=== PATIENT | male | born 1950 | race African-American/Black ===

== ENCOUNTER 2017-06-10 16:17 | Inpatient (IN) | payer OTHER, MEDICAID, MEDICARE ==
[~2017-06-10] VITALS: Ht 182.9 cm; Wt 153.0 kg
[~2017-06-10 16:17] MED LIST: BACT800T5 PO; CLIN150 PO
[2017-06-10 16:21] VITALS: BP 163/77; PULSE 100; RESP 20; TEMP 98; O2SAT 96
[2017-06-10] MEDS ORDERED: HYDR-3580 PO (17:21)
[2017-06-10] MEDS ORDERED: CEPH-460 PO (17:21)
[2017-06-10] MEDS ORDERED: PIPERACIL-TAZO 3.375 GM PREMIX 50 ML IV ONE (17:45)
[2017-06-10] MEDS ORDERED: VANCOMYCIN INJ 1,000 MG in SODIUM CHLOR 0.9% 250 ML INJ 250 ML IV ONE (17:45)
[2017-06-10 18:28] VITALS: BP 147/115; O2SAT 97
[2017-06-10 18:43] LABS: AUTOMATED NEUTROPHIL # 7.4 TH/MM3 (1.8-7.7); BASOPHIL % 0.5 % (0.0-2.0); EOSINOPHIL # 0.1 TH/MM3 (0-0.4); EOSINOPHIL % 1.5 % (0.0-4.0); HEMATOCRIT 35.4 % (39.0-51.0); HEMOGLOBIN 11.9 GM/DL (13.0-17.0); LYMPH % 10.4 % (9.0-44.0); MEAN CELL VOLUME 86.3 FL (80.0-100.0); MEAN CORPUSCULAR HEMOGLOBIN 29.1 PG (27.0-34.0); MEAN CORPUSCULAR HGB CONC 33.7 % (32.0-36.0); MEAN PLATELET VOLUME 6.8 FL (7.0-11.0); MONO % 9.2 % (0.0-8.0); MONOCYTE # 0.9 TH/MM3 (0-0.9); NEUT % 78.4 % (16.0-70.0); PLATELET COUNT 296 TH/MM3 (150-450); RED CELL DISTRIBUTION WIDTH 14.6 % (11.6-17.2); WHITE BLOOD COUNT 9.4 TH/MM3 (4.0-11.0)
--- NOTE | 2017-06-10 18:43 | PD ---
HPI Chief Complaint: Skin Problem Time Seen by Provider: 18:37 Travel History International Travel<30 days: No Contact w/Intl Traveler<30days: No Traveled to known affect area: No History of Present Illness HPI 66-year-old male that presents to the ED for evaluation of lower leg edema and possible infection. Patient has a chronic history of lymphedema. Patient has chronic lower leg swelling. Per patient for the past 5 days he has been noticing discoloration of the lower legs as well as wounds. Is foul-smelling. Patient went to see his doctor Dr. Vasquez today who sent him here for evaluation and likely admission. Patient shows me the prescription from the doctor stating to patient was referred to here by the doctor and there is a note that he wants me to talk to him. Per patient he was seen at [facility] about a week or 2 ago for evaluation of something similar and he was started on Keflex. Per patient she did not fill the prescription. He is also homeless and states that he will like consistent with placement secondary to the cold. He denies any chest pain or shortness of breath. Per patient she's been doing wound care himself daily. He denies any history of diabetes. He denies taking any medications. No chest pain or shortness of breath. Allergy to lidocaine. Per patient he currently has no pain. PFSH Past Medical History Blood Disorders: No Cancer: No Cardiovascular Problems: No Diminished Hearing: No Endocrine: No Genitourinary: No Immune Disorder: No Musculoskeletal: Yes (WEAKNESS/LYMPHEDEMA/ELEPHANTITIS) Neurologic: No Psychiatric: No Reproductive: No Respiratory: No Immunizations Current: No Past Surgical History Oral Surgery: Yes (TONSILLECTOMY) Tonsillectomy: Yes Other Surgery: Yes Social History Alcohol Use: No (PT DENIES) Tobacco Use: No Substance Use: No Allergies-Medications (Allergen,Severity, Reaction): Coded Allergies: lidocaine (Unverified Allergy, Mild, 06/10/17) DENTIST TOLD HIM BUT HE DOESNT BELIEVE IT Reported Meds & Prescriptions Reported Meds & Active Scripts Active Reported Hydrocodone-Acetaminophen 7.5 Mg-325 Mg Tab 1 Tab PO Q4H PRN Keflex (Cephalexin) 500 Mg Cap 500 Mg PO Q12H Review of Systems Except as stated in HPI: all other systems reviewed are Neg Physical Exam Narrative GENERAL: SKIN: Warm and dry. See below HEAD: Atraumatic. Normocephalic. EYES: Pupils equal and round. No scleral icterus. No injection or drainage. ENT: No nasal bleeding or discharge. Mucous membranes pink and moist. Tongue is midline. No uvula deviation. NECK: Trachea midline. No JVD. CARDIOVASCULAR: Regular rate and rhythm. RESPIRATORY: No accessory muscle use. Clear to auscultation. Breath sounds equal bilaterally. GASTROINTESTINAL: Abdomen soft, non-tender, nondistended. Hepatic and splenic margins not palpable. MUSCULOSKELETAL: Extremities without clubbing, cyanosis, or edema. No obvious deformities. Full range of motion of the upper and lower extremities bilaterally. Patient has significant lymphedema to the lower legs bilaterally. Patient has bilateral wounds to the lower legs with foul-smelling discharge. Noticeable on both lower legs. More than 20 cm in diameter. Unclear chronicity. Hard to assess pulses secondary to patient's significant lymphedema. NEUROLOGICAL: Awake and alert. No obvious cranial nerve deficits. Motor grossly within normal limits. Five out of 5 muscle strength in the arms and legs. Normal speech. PSYCHIATRIC: Appropriate mood and affect; insight and judgment normal. Data Data Last Documented VS Vital Signs Date Time Temp Pulse Resp B/P (MAP) Pulse Ox O2 Delivery O2 Flow Rate FiO2 06/10/17 19:11 95 17 144/85 (104) 96 Room Air 06/10/17 16:21 98.0 Orders Orders Complete Blood Count With Diff (06/10/17 16:35) Comprehensive Metabolic Panel (06/10/17 16:35) Prothrombin Time / Inr (Pt) (06/10/17 16:35) Act Partial Throm Time (Ptt) (06/10/17 16:35) Westergren Sedimentation Rate (06/10/17 16:35) C-Reactive Protein (Crp) (06/10/17 16:35) Blood Culture (06/10/17 17:38) Wound Culture And Gram Stain (06/10/17 17:38) Vancomycin Inj (Vancomycin Inj) (06/10/17 17:45) Piperacil-Tazo 3.375 Gm Premix (Zosyn 3. (06/10/17 17:45) Wound Care (06/10/17 18:36) Admit Order (Ed Use Only) (06/10/17 19:18) Labs Laboratory Tests Test 06/10/17 18:01 White Blood Count 9.4 TH/MM3 Red Blood Count 4.10 MIL/MM3 Hemoglobin 11.9 GM/DL Hematocrit 35.4 % Mean Corpuscular Volume 86.3 FL Mean Corpuscular Hemoglobin 29.1 PG Mean Corpuscular Hemoglobin Concent 33.7 % Red Cell Distribution Width 14.6 % Platelet Count 296 TH/MM3 Mean Platelet Volume 6.8 FL Neutrophils (%) (Auto) 78.4 % Lymphocytes (%) (Auto) 10.4 % Monocytes (%) (Auto) 9.2 % Eosinophils (%) (Auto) 1.5 % Basophils (%) (Auto) 0.5 % Neutrophils # (Auto) 7.4 TH/MM3 Lymphocytes # (Auto) 1.0 TH/MM3 Monocytes # (Auto) 0.9 TH/MM3 Eosinophils # (Auto) 0.1 TH/MM3 Basophils # (Auto) 0.0 TH/MM3 CBC Comment DIFF FINAL Differential Comment Erythrocyte Sedimentation Rate 59 mm/hr Prothrombin Time 10.7 SEC Prothromb Time International Ratio 1.1 RATIO Activated Partial Thromboplast Time 26.4 SEC Blood Urea Nitrogen 10 MG/DL Creatinine 0.86 MG/DL Random Glucose 90 MG/DL Total Protein 8.4 GM/DL Albumin 2.9 GM/DL Calcium Level 8.6 MG/DL Alkaline Phosphatase 68 U/L Aspartate Amino Transf (AST/SGOT) 16 U/L Alanine Aminotransferase (ALT/SGPT) 12 U/L Total Bilirubin 0.9 MG/DL Sodium Level 137 MEQ/L Potassium Level 3.6 MEQ/L Chloride Level 102 MEQ/L Carbon Dioxide Level 27.5 MEQ/L Anion Gap 8 MEQ/L Estimat Glomerular Filtration Rate 108 ML/MIN C-Reactive Protein 4.20 MG/DL [facility] Medical Decision Making Medical Screen Exam Complete: Yes Emergency Medical Condition: Yes Medical Record Reviewed: Yes Interpretation(s) CBC & BMP Diagram 06/10/17 18:01 Total Protein 8.4 H, Albumin 2.9 L, Calcium Level 8.6, Alkaline Phosphatase 68, Aspartate Amino Transf (AST/SGOT) 16, Alanine Aminotransferase (ALT/SGPT) 12, Total Bilirubin 0.9 CRP and ERS elevated Differential Diagnosis Lymphedema versus one infection versus chronic wound infection versus cellulitis Narrative Course 66-year-old male that presents to the ED for evaluation of lower leg edema and possible infection. Patient was properly examined and was found to have signs and symptoms consistent with infection. I spoke with Dr. Vasquez over the phone who is aware of the patient as is the patient's PCP recommended the patient be admitted. Per Dr. Vasquez he wants the patient to be admitted to help us as he does not admit non [employer] patients. Labs were ordered. Do not see any need for imaging at this time as patient has had no falls or I do not see any sign of osteomyelitis. This appears to be acute chronic wound that is infected. Does smell foul. Labs were ordered. Pressures on IV antibiotics. Case will be discussed with JOESPH Linda who agrees to obs admission. Diagnosis Primary Impression: Lower extremity cellulitis Qualified Codes: L03.119 - Cellulitis of unspecified part of limb Additional Impression: Lymphedema Admitting Information Admitting Physician Requests: Tigre Carcamo Jun 10, 2017 18:43
[2017-06-10 18:53] LABS: INTERNATIONAL NORMALIZED RATIO 1.1 RATIO; PROTHROMBIN TIME - PATIENT 10.7 SEC (9.8-11.6)
[2017-06-10 18:55] LABS: ALBUMIN 2.9 GM/DL (3.4-5.0); AST (GOT) 16 U/L (15-37); BICARBONATE 27.5 MEQ/L (21.0-32.0); BLOOD UREA NITROGEN 10 MG/DL (7-18); CALCIUM 8.6 MG/DL (8.5-10.1); CHLORIDE 102 MEQ/L (98-107); CREATININE 0.86 MG/DL (0.60-1.30); GLOMERULAR FILTRATION RATE 108 ML/MIN (>89); GLUCOSE,RANDOM 90 MG/DL (74-106); SODIUM (NA) 137 MEQ/L (136-145)
[2017-06-10 18:57] LABS: ALT (GPT) 12 U/L (12-78)
[2017-06-10 18:59] LABS: ALKALINE PHOSPHATASE 68 U/L (45-117); TOTAL BILIRUBIN ADULT 0.9 MG/DL (0.2-1.0); TOTAL PROTEIN 8.4 GM/DL (6.4-8.2)
[2017-06-10 19:11] VITALS: BP 144/85; PULSE 95; RESP 17; O2SAT 96
--- NOTE | 2017-06-10 19:37 | HHI.HP ---
[facility] Unknown Admission Diagnosis lower leg lymphedema with infected wounds and cellulitis Diagnoses: (1) Lower extremity cellulitis Diagnosis: Principal (2) Lymphedema Diagnosis: Principal (3) HTN (hypertension) Diagnosis: Principal Travel History International Travel<30 Days: No Contact w/Intl Traveler <30 Da: No Traveled to Known Affected Are: No History of Present Illness This is a 66-year-old Homeless male w/ a PMH of Lymphedema who was referred to the ER by PCP, Dr. Vasquez, for evaluation and admission secondary to bilateral lower extremity lymphedema and cellulitis. Per patient, he's had worsening swelling of bilateral lower extremities for approx 1wk. Notes associated foul- smelling odor and drainage from lower extremity wounds. Moderate severity. Seen at 2wks ago for similar symptoms and was given Rx for Keflex and Lortab , states he filled Lortab but not Keflex prescription. Seen by PCP today and referred to ER. Denies fever or chills. No alleviating or exacerbating factors. On arrival, BP 163/77, HR 100, O2 sat 96% on RA, Afebrile. CBC essentially at baseline. Chemistry unremarkable. INR 1.1. S/p Blood/Wound Cultures, Vanc/Zosyn in ER. Review of Systems Except as stated in HPI: all other systems reviewed are Neg ROS: 14 point review of systems otherwise negative. Past Family Social History Past Medical History PMH: Lymphedema Past Surgical History PAST SURGICAL HISTORY: Tonsillectomy Allergies: Coded Allergies: lidocaine (Unverified Allergy, Mild, 06/10/17) DENTIST TOLD HIM BUT HE DOESNT BELIEVE IT Family History PAST FAMILY HISTORY: Reviewed. No h/o DM or CAD Social History PAST SOCIAL HISTORY: Negative for alcohol, tobacco or drugs. Physical Exam Vital Signs Vital Signs Date Time Temp Pulse Resp B/P (MAP) Pulse Ox O2 Delivery O2 Flow Rate FiO2 06/10/17 19:11 95 17 144/85 (104) 96 Room Air 06/10/17 18:28 99 15 147/115 (126) 97 Room Air 06/10/17 18:13 16 06/10/17 16:21 98.0 100 20 163/77 (105) 96 Room Air Physical Exam PE: GENERAL: Middle-aged black male in no acute distress. Intense foul smelling odor upon walking into room. HEENT: PERRLA, EOMI. No scleral icterus or conjunctival pallor. No lid lag or facial droop. CARDIOVASCULAR: Regular rate and rhythm. No obvious murmurs to auscultation. No chest tenderness to palpation. RESPIRATORY: No obvious rhonchi or wheezing. Clear to auscultation. Breath sounds equal bilaterally. GASTROINTESTINAL: Abdomen soft, non-tender, nondistended. BS normal. MUSCULOSKELETAL: Extremities without clubbing, cyanosis, or edema. No obvious deformities. Significant lower extremity lymphedema bilaterally, open wounds w/ purulent drainage. NEUROLOGICAL: Awake, alert and oriented x4. No focal neurologic deficits. Moving both upper and lower extremities spontaneously. Laboratory Laboratory Tests Test 06/10/17 18:01 White Blood Count 9.4 Red Blood Count 4.10 Hemoglobin 11.9 Hematocrit 35.4 Mean Corpuscular Volume 86.3 Mean Corpuscular Hemoglobin 29.1 Mean Corpuscular Hemoglobin Concent 33.7 Red Cell Distribution Width 14.6 Platelet Count 296 Mean Platelet Volume 6.8 Neutrophils (%) (Auto) 78.4 Lymphocytes (%) (Auto) 10.4 Monocytes (%) (Auto) 9.2 Eosinophils (%) (Auto) 1.5 Basophils (%) (Auto) 0.5 Neutrophils # (Auto) 7.4 Lymphocytes # (Auto) 1.0 Monocytes # (Auto) 0.9 Eosinophils # (Auto) 0.1 Basophils # (Auto) 0.0 CBC Comment DIFF FINAL Differential Comment Erythrocyte Sedimentation Rate 59 Prothrombin Time 10.7 Prothromb Time International Ratio 1.1 Activated Partial Thromboplast Time 26.4 Blood Urea Nitrogen 10 Creatinine 0.86 Random Glucose 90 Total Protein 8.4 Albumin 2.9 Calcium Level 8.6 Alkaline Phosphatase 68 Aspartate Amino Transf (AST/SGOT) 16 Alanine Aminotransferase (ALT/SGPT) 12 Total Bilirubin 0.9 Sodium Level 137 Potassium Level 3.6 Chloride Level 102 Carbon Dioxide Level 27.5 Anion Gap 8 Estimat Glomerular Filtration Rate 108 C-Reactive Protein 4.20 Date/Time Source Procedure Growth Status 06/10/17 18:05 Blood Peripheral Aerobic Blood Culture Pending Received 06/10/17 18:05 Blood Peripheral Anaerobic Blood Culture Pending Received 06/10/17 18:01 Wound Leg Gram Stain Pending Received 06/10/17 18:01 Wound Leg Wound Culture Pending Received Result Diagram: 06/10/17 1801 06/10/17 180 Rodneyrini VTE Risk Assessment Caprini VTE Risk Assessment: Mod/High Risk (score >= 2) Caprini Risk Assessment Model Point Value = 1 Point Value = 2 Point Value = 3 Point Value = 5 Age 41-60 Minor surgery BMI > 25 kg/m2 Swollen legs Varicose veins or History of unexplained or recurrent spontaneous Oral contraceptives or hormone replacement Sepsis (< 1 month) Serious lung disease, including pneumonia (< 1 month) Abnormal pulmonary function Acute myocardial infarction Congestive heart failure (< 1 month) History of inflammatory bowel disease Medical patient at bed rest Age 61-74 Arthroscopic surgery Major open surgery (> 45 min) Laparoscopic surgery (> 45 min) Malignancy Confined to bed (> 72 hours) Immobilizing plaster cast Central venous access Age >= 75 History of VTE Family history of VTE Factor V Leiden Prothrombin [id number] Lupus anticoagulant Anticardiolipin antibodies Elevated serum homocysteine Heparin-induced thrombocytopenia Other congenital or acquired thrombophilia Stroke (< 1 month) Elective arthroplasty Hip, pelvis, or leg fracture Acute spinal cord injury (< 1 month) Prophylaxis Regimen Total Risk Factor Score Risk Level Prophylaxis Regimen 0-1 Low Early ambulation 2 Moderate Order ONE of the following: *Sequential Compression Device (SCD) *Heparin 5000 units SQ BID 3-4 Higher Order ONE of the following medications: *Heparin 5000 units SQ TID *Enoxaparin/Lovenox 40 mg SQ daily (WT < 150 kg, CrCl > 30 mL/min) *Enoxaparin/Lovenox 30 mg SQ daily (WT < 150 kg, CrCl > 10-29 mL/min) *Enoxaparin/Lovenox 30 mg SQ BID (WT < 150 kg, CrCl > 30 mL/min) AND/OR *Sequential Compression Device (SCD) 5 or more Highest Order ONE of the following medications: *Heparin 5000 units SQ TID (Preferred with Epidurals) *Enoxaparin/Lovenox 40 mg SQ daily (WT < 150 kg, CrCl > 30 mL/min) *Enoxaparin/Lovenox 30 mg SQ daily (WT < 150 kg, CrCl > 10-29 mL/min) *Enoxaparin/Lovenox 30 mg SQ BID (WT < 150 kg, CrCl > 30 mL/min) AND *Sequential Compression Device (SCD) Assessment and Plan Problem List: (1) Lower extremity cellulitis ICD Code: L03.119 - Cellulitis of unspecified part of limb (2) Lymphedema ICD Code: I89.0 - Lymphedema, not elsewhere classified (3) HTN (hypertension) ICD Code: I10 - Essential (primary) hypertension Assessment and Plan A/P: 1. Lower Extremity Cellulitis: Bilateral. c/o worsening bilateral lower extremity edema w/ foul-smelling drainage. Follow up Blood/Urine Cultures. S/ p Vanc/Zosyn in ER, continue w/ broad spectrum antibiotics for now. Consult Wound Management for assistance w/ wound care. 2. Lymphedema: Acute on Chronic. Worsening bilateral lower extremity edema as above. Continue w/ treatment of underlying cellulitis, pneumatic compression once infection clears. 3. HTN: Uncontrolled. BP 160's. Start Metoprolol 25mg bid 4. DVT Prophylaxis: Lovenox 5. Social work for d/c planning as needed. 6. Previous records/labs reviewed by me, case discussed w/ ER physician, plan of care discussed w/ DOCUMENT SCANNER. Physician Certification 2 Midnight Certification Type: Admission for Inpatient Services Order for Inpatient Services The services are ordered in accordance with Medicare regulations or non- Medicare payer requirements, as applicable. In the case of services not specified as inpatient-only, they are appropriately provided as inpatient services in accordance with the 2-midnight benchmark. Estimated LOS (days): 2 days is the estimated time the patient will need to remain in the hospital, assuming treatment plan goals are met and no additional complications. Post-Hospital Plan: Not yet determined Sole Linda MD Jun 10, 2017 19:37
[2017-06-10] MEDS ORDERED: ONDANSETRON HCL 4 MG/2 ML VIAL IVP PRN (19:45)
[2017-06-10] MEDS ORDERED: ACETAMINOPHEN 325 MG TAB PO PRN (19:45)
[2017-06-10] MEDS ORDERED: BISACODYL 10 MG SUPP RECTAL PRN (19:45)
[2017-06-10] MEDS ORDERED: Vancomycin Consult Pharmacy 1 EA OTHER SCH (19:45)
[2017-06-10] MEDS ORDERED: SENNOSIDES 8.6 MG TAB PO PRN (19:45)
[2017-06-10] MEDS ORDERED: ACETAMINOPHEN/HYDROcodone 325 MG/5 MG TAB PO PRN (19:45)
[2017-06-10] MEDS ORDERED: SODIUM CHLORIDE 0.9% FLUSH 10 ML FLUSH IV FLUSH PRN (19:45)
[2017-06-10] MEDS ORDERED: ACETAMINOPHEN/HYDROcodone 325 MG/10 MG TAB PO PRN (19:45)
[2017-06-10] MEDS ORDERED: LACTULOSE SYRUP 20 GM/30 ML CUP PO PRN (19:45)
[2017-06-10] MEDS ORDERED: MAGNESIUM HYDROXIDE SUSP 30 ML CUP PO PRN (19:45)
[2017-06-10] MEDS ORDERED: VANCOMYCIN 1,500 MG/NS 500 ML IV ONE ×2 (20:00)
[2017-06-10] MEDS: SODIUM CHLORIDE 0.9% FLUSH 10 ML FLUSH IV FLUSH SCH (21:00)
[2017-06-10] MEDS: METOPROLOL TARTRATE 25 MG TAB PO SCH (21:00)
[2017-06-10] MEDS: DOCUSATE SODIUM 50 MG/SENNA 8.6 MG TAB PO SCH (21:00)
[2017-06-10] MEDS: ENOXAPARIN SODIUM 40 MG/0.4 ML SYRINGE SQ SCH (21:00)
[2017-06-10 22:41] VITALS: BP 136/64; PULSE 106; RESP 20; TEMP 98.9; O2SAT 97
[2017-06-11] VITALS: BP 132/60; PULSE 106; RESP 20; TEMP 98.3; O2SAT 96
[2017-06-11 08:00] VITALS: BP 133/60; PULSE 93; RESP 22; TEMP 99.7; O2SAT 95
[2017-06-11] MEDS: DOCUSATE SODIUM 50 MG/SENNA 8.6 MG TAB PO SCH ×3 (08:01→20:31)
[2017-06-11] MEDS: METOPROLOL TARTRATE 25 MG TAB PO SCH ×2 (08:01→20:31)
[2017-06-11] MEDS: SODIUM CHLORIDE 0.9% FLUSH 10 ML FLUSH IV FLUSH SCH ×2 (08:02→20:34)
[2017-06-11] MEDS: CEFEPIME INJ 1,000 MG in SODIUM CHLORIDE 0.9% INJ 100 ML IV SCH ×2 (08:02→20:29)
[2017-06-11] MEDS: VANCOMYCIN INJ 2,250 MG in SODIUM CHLORID 0.9% 500 ML INJ 500 ML IV SCH ×2 (10:26→23:38)
--- NOTE | 2017-06-11 11:47 | HHI.PR ---
Subjective Remarks Follow-up for lower extremity acute on chronic secondary to lymphedema/ cellulitis Patient has no complaints. He remains afebrile. Deny any pain. Objective Vitals Vital Signs Date Time Temp Pulse Resp B/P (MAP) Pulse Ox O2 Delivery O2 Flow Rate FiO2 06/11/17 08:00 99.7 93 22 133/60 (84) 95 06/11/17 00:00 98.3 106 20 132/60 (84) 96 06/10/17 22:41 98.9 106 20 136/64 (88) 97 06/10/17 20:54 06/10/17 19:11 95 17 144/85 (104) 96 Room Air 06/10/17 18:28 99 15 147/115 (126) 97 Room Air 06/10/17 18:13 16 06/10/17 16:21 98.0 100 20 163/77 (105) 96 Room Air I/O 06/10/17 06/10/17 06/10/17 06/11/17 06/11/17 06/11/17 07:00 15:00 23:00 07:00 15:00 23:00 Intake Total 50 ml 120 ml Balance 50 ml 120 ml Intake Oral 120 ml IV Total 50 ml Result Diagram: 06/10/17 18006/10/171800 Objective Remarks GENERAL: Middle-aged black male in no acute distress very bad odor CARDIOVASCULAR: Regular rate and rhythm. No obvious murmurs to auscultation. No chest tenderness to palpation. RESPIRATORY: No obvious rhonchi or wheezing. Clear to auscultation. Breath sounds equal bilaterally. GASTROINTESTINAL: Abdomen soft, non-tender, nondistended. BS normal. MUSCULOSKELETAL: Significant lower extremity lymphedema bilaterally, open /also ulcerating wounds w/ purulent drainage. Medications and IVs Current Medications Vancomycin HCl 1000 mg/Sodium Chloride 250 ml @ 250 mls/hr ONCE ONCE IV Last administered on 06/10/17 19:15; Start 06/10/17 at 17:45; Stop 06/10/17 at 18 :44; Status DC Piperacillin Sod/ Tazobactam Sod 50 ml @ 100 mls/hr ONCE ONCE IV Last administered on 06/10/17 18:28; Start 06/10/17 at 17:45; Stop 06/10/17 at 18 :14; Status DC Pharmacy Profile Note 0 ml @ 0 mls/hr UNSCH OTHER ; Start 06/10/17 at 19:45 Cefepime HCl 1000 mg/Sodium Chloride 100 ml @ 200 mls/hr Q12H IV Last administered on 06/11/17 08:02; Start 06/11/17 at 09:00 Sodium Chloride (NS Flush) 2 ml UNSCH PRN IV FLUSH FLUSH AFTER USING IV ACCESS ; Start 06/10/17 at 19:45 Sodium Chloride (NS Flush) 2 ml BID IV FLUSH Last administered on 06/11/17 08 :02; Start 06/10/17 at 21:00 Ondansetron HCl (Zofran Inj) 4 mg Q6H PRN IVP NAUSEA OR VOMITING; Start at 19:45 Enoxaparin Sodium (Lovenox Inj) 40 mg Q24H SQ ; Start 06/10/17 at 21:00 Acetaminophen (Tylenol) 650 mg Q6H PRN PO FEVER/PAIN SCALE 1 TO 2; Start 06/10 at 19:45 Acetaminophen/ Hydrocodone Bitart ([place] 5-325 Mg) 1 tab Q4H PRN PO PAIN SCALE 3 TO 5; Start 06/10/17 at 19:45 Acetaminophen/ Hydrocodone Bitart ([place] 10-325 Mg) 1 tab Q4H PRN PO PAIN SCALE 6 TO 10; Start 06/10/17 at 19:45 Senna/Docusate Sodium (Dagmar-Colace) 1 tab BID PO ; Start 06/10/17 at 21:00 Magnesium Hydroxide (Milk Of Magnesia Liq) 30 ml Q12H PRN PO Mild constipation ; Start 06/10/17 at 19:45 Sennosides (Senokot) 17.2 mg Q12H PRN PO Moderate constipation; Start at 19:45 Bisacodyl (Dulcolax Supp) 10 mg DAILY PRN RECTAL SEVERE CONSITIPATION; Start 06/10/17 at 19:45 Lactulose (Lactulose Liq) 30 ml DAILY PRN PO SEVERE CONSITIPATION; Start 06/10 at 19:45 Vancomycin HCl 1500 mg/Sodium Chloride 515 ml @ 257.5 mls/ hr ONCE ONCE IV Last administered on 06/10/17 20:22; Start 06/10/17 at 20:00; Stop 06/10/17 at 21:59; Status DC Metoprolol Tartrate (Lopressor) 25 mg Q12HR PO Last administered on 06/11/17 08:01; Start 06/10/17 at 21:00 Vancomycin HCl 2250 mg/Sodium Chloride 522.5 ml @ 250 mls/hr Q12H IV Last administered on 06/11/17 10:26; Start 06/11/17 at 11:00 Miscellaneous Information SPECIFIC LAB TO BE ... ONCE ONCE .XX ; Start at 22:45; Stop 06/12/17 at 22:46 A/P Problem List: (1) Lower extremity cellulitis ICD Code: L03.119 - Cellulitis of unspecified part of limb (2) Lymphedema ICD Code: I89.0 - Lymphedema, not elsewhere classified (3) HTN (hypertension) ICD Code: I10 - Essential (primary) hypertension Assessment and Plan This is a 66-year-old male with chronic wound/lymphedema who presented with increased edema and foul-smelling drainage Lower Extremity Cellulitis: Bilateral. c/o worsening bilateral lower extremity edema w/ foul-smelling drainage. S/p Vanc/Zosyn in ER, -Currently on vancomycin and cefepime. Continue current regimen. Will consult infectious disease. -Pending wound care consult. Lymphedema -Wound care consulted. -Recommend elevating legs. Follow-up as outpatient. HTN: Uncontrolled. -Metoprolol started. Continue to monitor and adjust accordingly. DVT Prophylaxis: Gaby Echevarria MD Jun 11, 2017 11:47
[2017-06-11 12:00] VITALS: BP 115/57; PULSE 79; RESP 20; TEMP 98; O2SAT 96
[2017-06-11 13:00] LABS: AUTOMATED NEUTROPHIL # 5.2 TH/MM3 (1.8-7.7); BASOPHIL % 0.5 % (0.0-2.0); EOSINOPHIL # 0.3 TH/MM3 (0-0.4); EOSINOPHIL % 3.5 % (0.0-4.0); HEMATOCRIT 29.7 % (39.0-51.0); HEMOGLOBIN 10.1 GM/DL (13.0-17.0); LYMPH % 13.5 % (9.0-44.0); MEAN CELL VOLUME 86.9 FL (80.0-100.0); MEAN CORPUSCULAR HEMOGLOBIN 29.5 PG (27.0-34.0); MEAN CORPUSCULAR HGB CONC 33.9 % (32.0-36.0); MEAN PLATELET VOLUME 6.9 FL (7.0-11.0); MONO % 10.4 % (0.0-8.0); MONOCYTE # 0.7 TH/MM3 (0-0.9); NEUT % 72.1 % (16.0-70.0); PLATELET COUNT 260 TH/MM3 (150-450); RED BLOOD COUNT 3.42 MIL/MM3 (4.50-5.90); RED CELL DISTRIBUTION WIDTH 14.6 % (11.6-17.2); WHITE BLOOD COUNT 7.2 TH/MM3 (4.0-11.0)
[2017-06-11] MEDS: CHLORHEXIDINE GLUCONATE 4% SOLN 120 ML BTL TOPICAL SCH (13:00)
[2017-06-11 13:18] LABS: ALKALINE PHOSPHATASE 60 U/L (45-117); ALT (GPT) 12 U/L (12-78); AST (GOT) 40 U/L (15-37); BICARBONATE 26.8 MEQ/L (21.0-32.0); BLOOD UREA NITROGEN 11 MG/DL (7-18); CALCIUM 8.1 MG/DL (8.5-10.1); CHLORIDE 109 MEQ/L (98-107); CREATININE 0.73 MG/DL (0.60-1.30); GLOMERULAR FILTRATION RATE 131 ML/MIN (>89); GLUCOSE,RANDOM 108 MG/DL (74-106); SODIUM (NA) 138 MEQ/L (136-145); TOTAL BILIRUBIN ADULT 0.6 MG/DL (0.2-1.0); TOTAL PROTEIN 6.6 GM/DL (6.4-8.2)
[2017-06-11 16:00] VITALS: BP 132/62; PULSE 88; RESP 21; TEMP 98.5; O2SAT 95
[2017-06-11 20:00] VITALS: BP 119/56; PULSE 112; RESP 20; TEMP 98.5; O2SAT 96
[2017-06-11] MEDS: ENOXAPARIN SODIUM 40 MG/0.4 ML SYRINGE SQ SCH (20:34)
[2017-06-12] VITALS: BP 122/60; PULSE 88; RESP 18; TEMP 99.7; O2SAT 95
--- NOTE | 2017-06-12 06:52 | HHI.PR ---
Subjective Remarks This is a follow-up regarding cellulitis. Patient seen and examined this morning. Vital stable afebrile. Foul smelling. He has no complaints, wants to know what the plan for today is. Has been seen by ID. He denies CP or difficulty breathing. Objective Vital Signs Date Time Temp Pulse Resp B/P (MAP) Pulse Ox O2 Delivery O2 Flow Rate FiO2 06/12/17 00:00 99.7 88 18 122/60 (80) 95 06/11/17 20:00 98.5 112 20 119/56 (77) 96 06/11/17 16:00 98.5 88 21 132/62 (85) 95 06/11/17 12:00 98.0 79 20 115/57 (76) 96 06/11/17 08:00 99.7 93 22 133/60 (84) 95 I/O 06/11/17 06/11/17 06/11/17 06/12/17 06/12/17 06/12/17 07:00 15:00 23:00 07:00 15:00 23:00 Intake Total 120 ml 1300 ml 500 ml Output Total 1200 ml 950 ml Balance 120 ml 100 ml -450 ml Intake Oral 120 ml 1200 ml IV Total 100 ml 500 ml Output Urine Total 1200 ml 950 ml # Bowel Movements 0 Result Diagram: 06/11/17 1239 06/11/17 1239 Other Results GENERAL: malodors obese male, nad SKIN: Warm and dry. Chronic wounds bilat LE, heather bandages in place. HEAD: Normocephalic. EYES: No scleral icterus. No injection or drainage. NECK: Supple, trachea midline. No JVD or lymphadenopathy. CARDIOVASCULAR: Regular rate and rhythm without murmurs, gallops, or rubs. RESPIRATORY: Breath sounds equal bilaterally. No accessory muscle use. GASTROINTESTINAL: Abdomen soft, non-tender, nondistended. MUSCULOSKELETAL: Significant lymphedema, elephantitis A/P Problem List: (1) Lower extremity cellulitis ICD Code: L03.119 - Cellulitis of unspecified part of limb (2) Lymphedema ICD Code: I89.0 - Lymphedema, not elsewhere classified (3) HTN (hypertension) ICD Code: I10 - Essential (primary) hypertension Assessment and Plan 66-year-old male with history of chronic wounds/lymphedema, presented to the ER with increased edema and foul smelling discharge. Lower extremity cellulitis - Bilateral - Blood cultures negative today, wound cultures gram negative corbin - Infectious Disease consulted: switched to PO abx Clinda and Cipro, ordered a bath with chlorhexadine - Wound care consulted Chronic lymphedema - Recommend elevating the legs, he will have to continue to follow-up as an outpatient regarding this Hypertension - On metoprolol currently at goal Discharge Planning ID recommends SNF for wound care I discussed this case with Dr. Vanita Jerry,Kat Pool MD Jun 12, 2017 06:52
[2017-06-12] MEDS: CEFEPIME INJ 1,000 MG in SODIUM CHLORIDE 0.9% INJ 100 ML IV SCH (07:28)
[2017-06-12] MEDS: SODIUM CHLORIDE 0.9% FLUSH 10 ML FLUSH IV FLUSH SCH (07:31)
[2017-06-12] MEDS: METOPROLOL TARTRATE 25 MG TAB PO SCH (07:31)
[2017-06-12] MEDS: CHLORHEXIDINE GLUCONATE 4% SOLN 120 ML BTL TOPICAL SCH (07:36)
[2017-06-12] MEDS: DOCUSATE SODIUM 50 MG/SENNA 8.6 MG TAB PO SCH (07:36)
[2017-06-12 08:00] VITALS: BP 122/79; PULSE 68; RESP 17; TEMP 97.7; O2SAT 95
--- NOTE | 2017-06-12 08:23 | PD.CONS ---
History of Present Illness Service Infectious disease Consult Requested By Dr Belkis Mix Reason for Consult Evaluate patient with chronic lymphedema has chronic BLE wounds Primary Care Physician Unknown Diagnoses: History of Present Illness Patient seen and examined. Records reviewed. Patient is a 66-year-old male, he is also homeless, has had lymphedema in both lower extremities for many many years, has had problem with chronic nonhealing wounds in both legs, seen by his primary care physician on the day of admission and he recommended that he go to the hospital for further evaluation and treatment. Patient states that his ulcers would heal and then would open up. He can't remember how long the wounds have been open. He tries to keep the wounds clean. She denies any fever or chills or sweats. No respiratory, GI or any urinary complaints. He saw his primary care physician on the day of admission, and he was advised to go to the hospital. He apparently went to [facility] several weeks ago to have his wounds checked. He was given Lortab and Keflex, both for some reason he did not fill the prescription for Keflex. Highest temperature since admission has been 99+. His WBC is normal. There was a wound culture done that had makes gram-negative rods as well as gram -positive donato. Infectious disease consultation has been requested to evaluate the patient with chronic lower extremity wounds. Review of Systems Constitutional: DENIES: Fever, Chills Eyes: DENIES: Eye pain Ears, nose, mouth, throat: DENIES: Nasal discharge, Oral lesions, Throat pain, Ear Pain, Running Nose, Sinus Pain Respiratory: DENIES: Cough, Sputum production, Shortness of breath Cardiovascular: COMPLAINS OF: Lower Extremity Edema, DENIES: Chest pain, Palpitations Gastrointestinal: DENIES: Abdominal pain, Diarrhea, Nausea, Vomiting, Difficulty Swallowing Genitourinary: DENIES: Urgency, Dysuria Musculoskeletal: COMPLAINS OF: Joint Swelling Integumentary: COMPLAINS OF: Rash Neurologic: DENIES: Localized weakness Psychiatric: DENIES: Hallucinations Past Family Social History Allergies: Coded Allergies: lidocaine (Unverified Allergy, Mild, 06/10/17) DENTIST TOLD HIM BUT HE DOESNT BELIEVE IT Past Medical History Lymphedema Stasis ulcers BLE Past Surgical History Tonsillectomy Active Ordered Medications Current Medications Medications (Trade) Dose Ordered Sig/Haleigh Route Start Time Stop Time Status Last Admin Pharmacy Profile Note 0 ml @ 0 mls/hr UNSCH OTHER 06/10/17 19:45 Cefepime HCl 1000 mg/Sodium Chloride 100 ml @ 200 mls/hr Q12H IV 06/11/17 09:00 06/12/17 07:28 (NS Flush) 2 ml UNSCH PRN IV FLUSH 06/10/17 19:45 (NS Flush) 2 ml BID IV FLUSH 06/10/17 21:00 06/12/17 07:31 (Zofran Inj) 4 mg Q6H PRN IVP 06/10/17 19:45 (Lovenox Inj) 40 mg Q24H SQ 06/10/17 21:00 (Tylenol) 650 mg Q6H PRN PO 06/10/17 19:45 (Brethren 5-325 Mg) 1 tab Q4H PRN PO 06/10/17 19:45 (Brethren 10-325 Mg) 1 tab Q4H PRN PO 06/10/17 19:45 (Dagmar-Colace) 1 tab BID PO 06/10/17 21:00 (Milk Of Magnesia Liq) 30 ml Q12H PRN PO 06/10/17 19:45 (Senokot) 17.2 mg Q12H PRN PO 06/10/17 19:45 (Dulcolax Supp) 10 mg DAILY PRN RECTAL 06/10/17 19:45 (Lactulose Liq) 30 ml DAILY PRN PO 06/10/17 19:45 (Lopressor) 25 mg Q12HR PO 06/10/17 21:00 06/12/17 07:31 Vancomycin HCl 2250 mg/Sodium Chloride 522.5 ml @ 250 mls/hr Q12H IV 06/11/17 11:00 06/11/17 23:38 Miscellaneous Information SPECIFIC LAB TO BE TOY... ONCE ONCE .XX 06/12/17 22:45 06/12/17 22:46 (Hibiclens 4% Top Soln) 1 applic DAILY TOPICAL 06/11/17 13:00 06/14/17 20:00 06/12/17 07:36 Family History Non-contributory Social History Homeless Denies smoking Denies ETOH abuse Denies illicit drugs Physical Exam Vital Signs Vital Signs Date Time Temp Pulse Resp B/P (MAP) Pulse Ox O2 Delivery O2 Flow Rate FiO2 06/12/17 00:00 99.7 88 18 122/60 (80) 95 06/11/17 20:00 98.5 112 20 119/56 (77) 96 06/11/17 16:00 98.5 88 21 132/62 (85) 95 06/11/17 12:00 98.0 79 20 115/57 (76) 96 Physical Exam GENERAL: Patient is an obese, well-developed male, awake and alert, not in respiratory distress. SKIN: Cool and dry. No generalized rash, no ecchymoses and no evidence of embolic lesions. HEAD: Atraumatic. Normocephalic. No temporal wasting, or tenderness. EYES: Whitestone conjunctiva. No petechia or hemorrhage. Pupils equal, round and reactive to light. Extraocular movements full and intact. No scleral icterus. No injection or drainage. EARS, NOSE AND THROAT: Nose without bleeding or purulent nasal discharge. No sinus tenderness. Mucous membranes pink and moist. No oral lesions noted. No exudate. No oral thrush. NECK: Trachea midline. Supple and not tender, no meningeal signs CARDIOVASCULAR: Regular rate and rhythm. No murmurs, rubs or gallops heard RESPIRATORY: Clear to auscultation. Breath sounds equal bilaterally. No rales , wheezing or rhonchi ABDOMEN: Obese, non-tender, nondistended. Bowel sounds present and normoactive. No guarding. No rebound. Limited exam due to size. EXTREMITIES: Has chronic lymphedema with tree tree bark texture of whole LE from feet up to below knees, with multiple superficial ulcers biltaerally with some yellow green slough, and (+) odor, minimal redness seen in knee/thigh areas NEUROLOGICAL: Awake and alert. Cranial nerves grossly intact. Motor grossly within normal limits. PSYCHIATRIC: Normal affect, calm and cooperative. LINE: No evidence of infection Laboratory Laboratory Tests Test 06/11/17 12:39 White Blood Count 7.2 Red Blood Count 3.42 Hemoglobin 10.1 Hematocrit 29.7 Mean Corpuscular Volume 86.9 Mean Corpuscular Hemoglobin 29.5 Mean Corpuscular Hemoglobin Concent 33.9 Red Cell Distribution Width 14.6 Platelet Count 260 Mean Platelet Volume 6.9 Neutrophils (%) (Auto) 72.1 Lymphocytes (%) (Auto) 13.5 Monocytes (%) (Auto) 10.4 Eosinophils (%) (Auto) 3.5 Basophils (%) (Auto) 0.5 Neutrophils # (Auto) 5.2 Lymphocytes # (Auto) 1.0 Monocytes # (Auto) 0.7 Eosinophils # (Auto) 0.3 Basophils # (Auto) 0.0 CBC Comment DIFF FINAL Differential Comment Blood Urea Nitrogen 11 Creatinine 0.73 Random Glucose 108 Total Protein 6.6 Albumin 2.0 Calcium Level 8.1 Alkaline Phosphatase 60 Aspartate Amino Transf (AST/SGOT) 40 Alanine Aminotransferase (ALT/SGPT) 12 Total Bilirubin 0.6 Sodium Level 138 Potassium Level 5.9 Chloride Level 109 Carbon Dioxide Level 26.8 Anion Gap 2 Estimat Glomerular Filtration Rate 131 Date/Time Source Procedure Growth Status 06/10/17 18:05 Blood Peripheral Aerobic Blood Culture - Preliminary NO GROWTH IN 1 DAY Resulted 06/10/17 18:05 Blood Peripheral Anaerobic Blood Culture - Preliminary NO GROWTH IN 1 DAY Resulted 06/10/17 18:01 Wound Leg Gram Stain - Final Resulted 06/10/17 18:01 Wound Leg Wound Culture - Preliminary Resulted Result Diagram: 06/11/17 1239 06/11/17 1239 Assessment and Plan Assessment and Plan IMPRESSION Chronic MYLES LE lymphedema, with stasis ulcers - min to no cellulitis - local infection due to poor hygiene and wound care RECOMMENDATION Have patient take [id number] to clean whole body and use chlorhexidine wash Needs safe discharge, so he can get wound care and better care Clinda and Cipro x 7 days D/C IV Abx CM to assist with D/C Thank you for this consultation He can be D/C anytime from ID standpoint once arrangements made for his safe D/C Discussed Condition With D/W Samantha Fung MD Jun 12, 2017 08:23
[2017-06-12 08:25] LABS: HEMATOCRIT 32.8 % (39.0-51.0); HEMOGLOBIN 10.7 GM/DL (13.0-17.0); MEAN CELL VOLUME 87.5 FL (80.0-100.0); MEAN CORPUSCULAR HEMOGLOBIN 28.6 PG (27.0-34.0); MEAN CORPUSCULAR HGB CONC 32.7 % (32.0-36.0); MEAN PLATELET VOLUME 6.7 FL (7.0-11.0); PLATELET COUNT 272 TH/MM3 (150-450); RED BLOOD COUNT 3.74 MIL/MM3 (4.50-5.90); RED CELL DISTRIBUTION WIDTH 14.3 % (11.6-17.2)
[2017-06-12] MEDS: CLINDAMYCIN 150 MG CAP PO SCH ×2 (08:33→12:40)
[2017-06-12 08:48] LABS: BICARBONATE 26.5 MEQ/L (21.0-32.0); CALCIUM 8.3 MG/DL (8.5-10.1); CREATININE 0.71 MG/DL (0.60-1.30)
[2017-06-12] MEDS ORDERED: CHLORHEXIDINE GLUCONATE 4% SOLN 120 ML BTL TOPICAL SCH (09:00)
[2017-06-12] MEDS ORDERED: CIPROFLOXACIN 750 MG TAB PO SCH (09:00)
[2017-06-12] MEDS ORDERED: CIPR750T2 PO (09:45)
[2017-06-12] MEDS ORDERED: CLIN150 PO (09:45)
--- NOTE | 2017-06-12 09:45 | HHI.DCPOC ---
Discharge Care Plan Diagnosis: (1) Lower extremity cellulitis (2) Lymphedema Goals to Promote Your Health * To prevent worsening of your condition and complications * To maintain your health at the optimal level Directions to Meet Your Goals Take your medications as prescribed Follow your dietary instruction Follow activity as directed Keep your appointments as scheduled Take your immunizations and boosters as scheduled If your symptoms worsen call your PCP, if no PCP go to Urgent Care Center or Emergency Room Smoking is Dangerous to Your Health. Avoid second hand smoke Call the 24-hour hour crisis hotline for domestic abuse at Kat Jerry MD Jun 12, 2017 09:45
[2017-06-12 12:00] VITALS: BP 139/76; PULSE 78; RESP 17; TEMP 97.6; O2SAT 93
[2017-06-12] MEDS ORDERED: HYDR-3580 PO ×2 (17:31→17:40)
[2017-06-12] MEDS ORDERED: PHARMACY ORDERED LAB ONE (22:45)
== END 2017-06-12 15:51 | DRG 603 ==
LOC: NEPE 16:17 → NEDA 19:19 → UNDOADMOB 19:20 → NEDA 19:20 → OBSVTOIN 19:37 → NEDA 20:54 → N07A 20:54 → UNDODISOB 06-12 15:51
PROVIDERS: ADMIT Family Medicine; ATTEND Family Medicine
DX: L03.115 Cellulitis of right lower limb (principal); Z68.42 Body mass index [BMI] 45.0-49.9, adult; I10 Essential (primary) hypertension; R60.0 Localized edema; L03.116 Cellulitis of left lower limb; I89.0 Lymphedema, not elsewhere classified; E66.9 Obesity, unspecified; I87.2 Venous insufficiency (chronic) (peripheral); Z59.0 Homelessness
CPT/HCPCS: 80048; 80053; 85025; 85027; 85610; 85652; 85730; 86140; 87040; 87070; 87205; 96365; 96375; G8987-GP; G8988-GP; J0692; J2543; J3370; J7040; J7050

== ENCOUNTER 2017-10-11 17:06 | Inpatient (IN) | payer OTHER, MEDICAID, MEDICARE ==
[~2017-10-11] VITALS: Ht 182.9 cm; Wt 144.0 kg
[~2017-10-11 17:06] MED LIST changes: -BACT800T5 PO; +CIPR750T2 PO; +HYDR-3580 PO
[2017-10-11 17:20] VITALS: BP 123/60; PULSE 103; RESP 16; TEMP 99.4; O2SAT 99
--- NOTE | 2017-10-11 17:39 | PD ---
HPI Chief Complaint: B/L LE wounds Time Seen by Provider: 17:17 Travel History International Travel<30 days: No Contact w/Intl Traveler<30days: No History of Present Illness HPI 67-year-old homeless male with history of lymphedema presents emergency department at the request of Dr. Ahmadi, his wound care physician for evaluation of bilateral lower extremity lymphedema and wounds. He says that he decided to walk into the wound care clinic today because his legs are worsening. He denies any pain, fever, chills, chest pain, shortness of breath, abdominal pain. He has no other complaints today and questions what medication I plan on giving him. I received report from her nurse today. She says that the legs were debrided of maggots and for probable admission. She said that Dr. Tapia should be contacted for vascular assessment and Dr. Ahmadi for wound care. PFSH Past Medical History Blood Disorders: No Cancer: No Cardiovascular Problems: No Diminished Hearing: No Endocrine: No Genitourinary: No Immune Disorder: No Musculoskeletal: No Neurologic: No Psychiatric: No Reproductive: No Respiratory: No Immunizations Current: No Past Surgical History Oral Surgery: Yes (TONSILLECTOMY) Tonsillectomy: Yes Other Surgery: Yes Social History Alcohol Use: No (PT DENIES) Tobacco Use: No Substance Use: No Allergies-Medications (Allergen,Severity, Reaction): Coded Allergies: lidocaine (Verified Allergy, Mild, 10/11/17) DENTIST TOLD HIM BUT HE DOESNT BELIEVE IT Reported Meds & Prescriptions Reported Meds & Active Scripts Active Hydrocodone-Acetaminophen 7.5 Mg-325 Mg Tab 1 Tab PO Q4H PRN Review of Systems Except as stated in HPI: all other systems reviewed are Neg Physical Exam Narrative GENERAL: Well-developed well-nourished no acute distress, difficulty ambulating secondary to the edema to his legs SKIN: Focused skin assessment warm/dry. Bilateral lower extremity lymphedema, stage IV HEAD: Atraumatic. Normocephalic. EYES: Pupils equal and round. No scleral icterus. No injection or drainage. ENT: No nasal bleeding or discharge. Mucous membranes pink and moist. NECK: Trachea midline. No JVD. No lymphadenopathy CARDIOVASCULAR: Regular rate and rhythm. No murmur appreciated. RESPIRATORY: No accessory muscle use. Clear to auscultation. Breath sounds equal bilaterally. GASTROINTESTINAL: Abdomen soft, non-tender, nondistended. No CVA tenderness MUSCULOSKELETAL: No obvious deformities. No clubbing. No cyanosis. No edema. Left lower extremity-multiple small superficial ulcerations with erythema. White discharge. Right lower extremity-plantar aspect of heel with a 3 cm round ulceration without exudate or discharge. This does not look deep. Bilateral lower extremities with hypertrophy of the skin, scaling. Diminished sensation bilateral lower extremities from the knees and distal. Patient is able to move bilateral lower extremities however difficulty with hip flexion secondary to weight. NEUROLOGICAL: Awake and alert. No obvious cranial nerve deficits. Motor grossly within normal limits. Normal speech. PSYCHIATRIC: Appropriate mood and affect; insight and judgment normal. Data Data Last Documented VS Vital Signs Date Time Temp Pulse Resp B/P (MAP) Pulse Ox O2 Delivery O2 Flow Rate FiO2 10/11/17 17:54 16 10/11/17 17:54 99.4 102 123/60 (81) 99 Room Air Orders Orders Complete Blood Count With Diff (10/11/17 17:19) Iv Access Insert/Monitor (10/11/17 17:19) Sepsis Workup Initiated (10/11/17 ) Electrocardiogram (10/11/17 17:19) Comprehensive Metabolic Panel (10/11/17 17:19) Prothrombin Time / Inr (Pt) (10/11/17 17:19) Act Partial Throm Time (Ptt) (10/11/17 17:19) Magnesium (Mg) (10/11/17 17:19) Lipase (10/11/17 17:19) Urinalysis - C+S If Indicated (10/11/17 17:19) Chest, Single Ap (10/11/17 17:19) Blood Glucose (10/11/17 17:19) Ecg Monitoring (10/11/17 17:19) Oximetry (10/11/17 17:19) Blood Culture (10/11/17 17:37) Lactic Acid Sepsis Protocol (10/11/17 17:37) Piperacil-Tazo 4.5 Gm Premix (Zosyn 4.5 (10/11/17 18:45) Vancomycin Inj (Vancomycin Inj) (10/11/17 18:45) Admit Order (Ed Use Only) (10/11/17 19:07) Labs Laboratory Tests Test 10/11/17 17:30 White Blood Count 14.4 TH/MM3 Red Blood Count 4.01 MIL/MM3 Hemoglobin 10.9 GM/DL Hematocrit 33.7 % Mean Corpuscular Volume 84.0 FL Mean Corpuscular Hemoglobin 27.1 PG Mean Corpuscular Hemoglobin Concent 32.3 % Red Cell Distribution Width 14.5 % Platelet Count 284 TH/MM3 Mean Platelet Volume 6.3 FL Neutrophils (%) (Auto) 84.5 % Lymphocytes (%) (Auto) 6.4 % Monocytes (%) (Auto) 6.8 % Eosinophils (%) (Auto) 1.9 % Basophils (%) (Auto) 0.4 % Neutrophils # (Auto) 12.1 TH/MM3 Lymphocytes # (Auto) 0.9 TH/MM3 Monocytes # (Auto) 1.0 TH/MM3 Eosinophils # (Auto) 0.3 TH/MM3 Basophils # (Auto) 0.1 TH/MM3 CBC Comment DIFF FINAL Differential Comment Prothrombin Time 11.9 SEC Prothromb Time International Ratio 1.2 RATIO Activated Partial Thromboplast Time 25.5 SEC Blood Urea Nitrogen 12 MG/DL Creatinine 0.87 MG/DL Random Glucose 131 MG/DL Total Protein 8.0 GM/DL Albumin 2.4 GM/DL Calcium Level 8.8 MG/DL Magnesium Level 2.1 MG/DL Alkaline Phosphatase 64 U/L Aspartate Amino Transf (AST/SGOT) 10 U/L Alanine Aminotransferase (ALT/SGPT) 12 U/L Total Bilirubin 0.6 MG/DL Sodium Level 135 MEQ/L Potassium Level 4.2 MEQ/L Chloride Level 101 MEQ/L Carbon Dioxide Level 28.4 MEQ/L Anion Gap 6 MEQ/L Estimat Glomerular Filtration Rate 106 ML/MIN Lactic Acid Level 1.9 mmol/L Lipase 89 U/L [facility] Medical Decision Making Medical Screen Exam Complete: Yes Emergency Medical Condition: Yes Differential Diagnosis Lymphedema, cellulitis, elephantiasis, chronic venous insufficiency, PAD Narrative Course 67-year-old homeless male with history of lymphedema presents emergency department at the request of Dr. Ahmadi, his wound care physician for evaluation of bilateral lower extremity lymphedema and wounds. He says that he decided to walk into the wound care clinic today because his legs are worsening. He denies any pain, fever, chills, chest pain, shortness of breath, abdominal pain. He has no other complaints today and questions what medication I plan on giving him. I received report from her nurse today. She says that the legs were debrided of maggots and for probable admission. She said that Dr. Tapia should be contacted for vascular assessment and Dr. Ahmadi for wound care. Vital signs HR 102, Temp 99.4 Sepsis labs initiated. Labs drawn, imaging studies ordered. EKG shows sinus rhythm at rate 94 without STEMI changes. CBC & BMP Diagram 10/11/17 17:30 Total Protein 8.0, Albumin 2.4 L, Calcium Level 8.8, Magnesium Level 2.1, Alkaline Phosphatase 64, Aspartate Amino Transf (AST/SGOT) 10 L, Alanine Aminotransferase (ALT/SGPT) 12, Total Bilirubin 0.6 Lactic 1.9. Last Impressions Chest X-Ray 10/11/17 8668 Signed Impressions: Service Date/Time: Wednesday, October 11, 2017 17:31 - CONCLUSION: The lungs are clear. Giovanni Macias MD Labs demonstrate elevated white blood cell count, borderline temperature of 99.4 , heart rate 102. Initiated Zosyn and vancomycin for his lower extremity wounds. I do not see that his white blood cell count was previously elevated for his lymphedema. I spoke with Dr. Garrett who agreed to the admission. Vascular and wound care to be consulted. Diagnosis Primary Impression: Lymphedema Additional Impression: Lower extremity cellulitis Qualified Codes: L03.119 - Cellulitis of unspecified part of limb Admitting Information Admitting Physician Requests: Observation Condition: Stable Shelley Blackburn October 11, 2017 17:39
--- NOTE | 2017-10-11 17:47 | RADRPT ---
EXAM DATE/TIME: 10/11/2017 17:31 [facility] COMPARISON: No previous studies available for comparison. INDICATIONS : Post procedure. S/P wound care. MEDICAL HISTORY : None. SURGICAL HISTORY : None. ENCOUNTER: Initial ACUITY: 1 day PAIN SCORE: 0/10 LOCATION: Bilateral chest FINDINGS: A single view of the chest demonstrates the lungs to be symmetrically aerated without evidence of mas s, infiltrate or effusion. No evidence of pneumothorax. The cardiomediastinal contours are unremark able. Osseous structures are intact. CONCLUSION: The lungs are clear. Giovanni Macias MD on October 11, 2017 at 17:45 Board Certified Radiologist. This report was verified electronically.
[2017-10-11 17:50] LABS: AUTOMATED NEUTROPHIL # 12.1 TH/MM3 (1.8-7.7); BASOPHIL # 0.1 TH/MM3 (0-0.2); BASOPHIL % 0.4 % (0.0-2.0); EOSINOPHIL # 0.3 TH/MM3 (0-0.4); EOSINOPHIL % 1.9 % (0.0-4.0); HEMATOCRIT 33.7 % (39.0-51.0); HEMOGLOBIN 10.9 GM/DL (13.0-17.0); LYMPH % 6.4 % (9.0-44.0); LYMPHOCYTE # 0.9 TH/MM3 (1.0-4.8); MEAN CORPUSCULAR HEMOGLOBIN 27.1 PG (27.0-34.0); MEAN CORPUSCULAR HGB CONC 32.3 % (32.0-36.0); MEAN PLATELET VOLUME 6.3 FL (7.0-11.0); MONO % 6.8 % (0.0-8.0); NEUT % 84.5 % (16.0-70.0); PLATELET COUNT 284 TH/MM3 (150-450); RED BLOOD COUNT 4.01 MIL/MM3 (4.50-5.90); RED CELL DISTRIBUTION WIDTH 14.5 % (11.6-17.2); WHITE BLOOD COUNT 14.4 TH/MM3 (4.0-11.0)
[2017-10-11 17:54] VITALS: BP 123/60; PULSE 102; RESP 16; TEMP 99.4; O2SAT 99
[2017-10-11 18:00] LABS: INTERNATIONAL NORMALIZED RATIO 1.2 RATIO; PROTHROMBIN TIME - PATIENT 11.9 SEC (9.8-11.6)
[2017-10-11 18:05] LABS: ALBUMIN 2.4 GM/DL (3.4-5.0); AST (GOT) 10 U/L (15-37); BICARBONATE 28.4 MEQ/L (21.0-32.0); BLOOD UREA NITROGEN 12 MG/DL (7-18); CALCIUM 8.8 MG/DL (8.5-10.1); CHLORIDE 101 MEQ/L (98-107); CREATININE 0.87 MG/DL (0.60-1.30); GLOMERULAR FILTRATION RATE 106 ML/MIN (>89); GLUCOSE,RANDOM 131 MG/DL (74-106); MAGNESIUM 2.1 MG/DL (1.5-2.5); SODIUM (NA) 135 MEQ/L (136-145)
[2017-10-11 18:07] LABS: ALT (GPT) 12 U/L (12-78)
[2017-10-11 18:09] LABS: ALKALINE PHOSPHATASE 64 U/L (45-117); TOTAL BILIRUBIN ADULT 0.6 MG/DL (0.2-1.0)
[2017-10-11] MEDS ORDERED: VANCOMYCIN INJ 1,750 MG in SODIUM CHLORID 0.9% 500 ML INJ 500 ML IV ONE (18:45)
[2017-10-11] MEDS ORDERED: PIPERACIL-TAZO 4.5 GM PREMIX 100 ML IV ONE (18:45)
[2017-10-11 19:30] VITALS: BP 140/70; PULSE 90; RESP 16; O2SAT 99
[2017-10-11] MEDS ORDERED: MAGNESIUM HYDROXIDE SUSP 30 ML CUP PO PRN (19:45)
[2017-10-11] MEDS ORDERED: SODIUM CHLORIDE 0.9% FLUSH 10 ML FLUSH IV FLUSH PRN (19:45)
[2017-10-11] MEDS ORDERED: ONDANSETRON HCL 4 MG/2 ML VIAL IVP PRN (19:45)
[2017-10-11] MEDS ORDERED: BISACODYL 10 MG SUPP RECTAL PRN (19:45)
[2017-10-11] MEDS ORDERED: Vancomycin Consult Pharmacy 1 EA OTHER SCH (19:45)
[2017-10-11] MEDS ORDERED: NALOXONE HCL 0.4 MG/ML AMP IV PUSH PRN (19:45)
[2017-10-11] MEDS ORDERED: ACETAMINOPHEN 325 MG TAB PO PRN (19:45)
[2017-10-11] MEDS ORDERED: LACTULOSE SYRUP 20 GM/30 ML CUP PO PRN (19:45)
[2017-10-11] MEDS ORDERED: SENNOSIDES 8.6 MG TAB PO PRN (19:45)
--- NOTE | 2017-10-11 20:00 | HHI.HP ---
[facility] Unknown Admission Diagnosis lymphedema, leukocytosis Diagnoses: Travel History International Travel<30 Days: No Contact w/Intl Traveler <30 Da: No Traveled to Known Affected Are: No History of Present Illness 67 year old male with a past medical history significant for bilateral lymphedema presents to the emergency department at the request of his wound care physician. Patient has severe bilateral lower extremity lymphedema with scaling skin and areas of exposed dermal layer. Posterior lower extremities draining foul-smelling serosanguineous material. The patient denies any fever/ chills. States he is having difficulty standing for long periods of time but is able to weight-bear. No chest pain or shortness of breath. No nausea/ vomiting/diarrhea/abdominal pain. No fatigue/weakness. No lateralizing signs/ symptoms. Review of Systems Except as stated in HPI: all other systems reviewed are Neg Past Family Social History Past Medical History None Past Surgical History Tonsillectomy Reported Medications Reported Meds & Active Scripts Active Hydrocodone-Acetaminophen 7.5 Mg-325 Mg Tab 1 Tab PO Q4H PRN Allergies: Coded Allergies: lidocaine (Verified Allergy, Mild, 10/11/17) DENTIST TOLD HIM BUT HE DOESNT BELIEVE IT Family History Patient does not know Social History Negative for alcohol, tobacco and illicit drugs. Physical Exam Vital Signs Vital Signs Date Time Temp Pulse Resp B/P (MAP) Pulse Ox O2 Delivery O2 Flow Rate FiO2 10/11/17 17:54 16 10/11/17 17:54 99.4 102 16 123/60 (81) 99 Room Air 10/11/17 17:20 99.4 103 16 123/60 (81) 99 Physical Exam GENERAL: -Guyanese male sitting up in bed SKIN: Bilateral lower extremities with scaling skin and areas of exposed dermis. Posterior legs with serosanguineous drainage that is foul-smelling. HEAD: Atraumatic. Normocephalic. No temporal or scalp tenderness. EYES: Pupils equal round and reactive. Extraocular motions intact. No scleral icterus. No injection or drainage. ENT: Nose without bleeding, purulent drainage or septal hematoma. Throat without erythema, tonsillar hypertrophy or exudate. Uvula midline. Airway patent. NECK: Trachea midline. No JVD or lymphadenopathy. Supple, nontender, no meningeal signs. CARDIOVASCULAR: Regular rate and rhythm without murmurs, gallops, or rubs. RESPIRATORY: Clear to auscultation. Breath sounds equal bilaterally. No wheezes , rales, or rhonchi. GASTROINTESTINAL: Abdomen soft, non-tender, nondistended. No hepato-splenomegaly , or palpable masses. No guarding. MUSCULOSKELETAL: Severe bilateral lower extremity edema with tenderness to palpation. NEUROLOGICAL: Awake and alert. Cranial nerves II through XII intact. Motor and sensory grossly within normal limits. Normal speech. Laboratory Laboratory Tests Test 10/11/17 17:30 White Blood Count 14.4 Red Blood Count 4.01 Hemoglobin 10.9 Hematocrit 33.7 Mean Corpuscular Volume 84.0 Mean Corpuscular Hemoglobin 27.1 Mean Corpuscular Hemoglobin Concent 32.3 Red Cell Distribution Width 14.5 Platelet Count 284 Mean Platelet Volume 6.3 Neutrophils (%) (Auto) 84.5 Lymphocytes (%) (Auto) 6.4 Monocytes (%) (Auto) 6.8 Eosinophils (%) (Auto) 1.9 Basophils (%) (Auto) 0.4 Neutrophils # (Auto) 12.1 Lymphocytes # (Auto) 0.9 Monocytes # (Auto) 1.0 Eosinophils # (Auto) 0.3 Basophils # (Auto) 0.1 CBC Comment DIFF FINAL Differential Comment Prothrombin Time 11.9 Prothromb Time International Ratio 1.2 Activated Partial Thromboplast Time 25.5 Blood Urea Nitrogen 12 Creatinine 0.87 Random Glucose 131 Total Protein 8.0 Albumin 2.4 Calcium Level 8.8 Magnesium Level 2.1 Alkaline Phosphatase 64 Aspartate Amino Transf (AST/SGOT) 10 Alanine Aminotransferase (ALT/SGPT) 12 Total Bilirubin 0.6 Sodium Level 135 Potassium Level 4.2 Chloride Level 101 Carbon Dioxide Level 28.4 Anion Gap 6 Estimat Glomerular Filtration Rate 106 Lactic Acid Level 1.9 Lipase 89 Date/Time Source Procedure Growth Status 10/11/17 17:00 Blood Peripheral Aerobic Blood Culture Pending Received 10/11/17 17:00 Blood Peripheral Anaerobic Blood Culture Pending Received Result Diagram: 10/11/17 1730 10/11/17 1730 Caprini VTE Risk Assessment Caprini VTE Risk Assessment: Mod/High Risk (score >= 2) Caprini Risk Assessment Model Point Value = 1 Point Value = 2 Point Value = 3 Point Value = 5 Age 41-60 Minor surgery BMI > 25 kg/m2 Swollen legs Varicose veins or History of unexplained or recurrent spontaneous Oral contraceptives or hormone replacement Sepsis (< 1 month) Serious lung disease, including pneumonia (< 1 month) Abnormal pulmonary function Acute myocardial infarction Congestive heart failure (< 1 month) History of inflammatory bowel disease Medical patient at bed rest Age 61-74 Arthroscopic surgery Major open surgery (> 45 min) Laparoscopic surgery (> 45 min) Malignancy Confined to bed (> 72 hours) Immobilizing plaster cast Central venous access Age >= 75 History of VTE Family history of VTE Factor V Leiden Prothrombin [id number] Lupus anticoagulant Anticardiolipin antibodies Elevated serum homocysteine Heparin-induced thrombocytopenia Other congenital or acquired thrombophilia Stroke (< 1 month) Elective arthroplasty Hip, pelvis, or leg fracture Acute spinal cord injury (< 1 month) Prophylaxis Regimen Total Risk Factor Score Risk Level Prophylaxis Regimen 0-1 Low Early ambulation 2 Moderate Order ONE of the following: *Sequential Compression Device (SCD) *Heparin 5000 units SQ BID 3-4 Higher Order ONE of the following medications: *Heparin 5000 units SQ TID *Enoxaparin/Lovenox 40 mg SQ daily (WT < 150 kg, CrCl > 30 mL/min) *Enoxaparin/Lovenox 30 mg SQ daily (WT < 150 kg, CrCl > 10-29 mL/min) *Enoxaparin/Lovenox 30 mg SQ BID (WT < 150 kg, CrCl > 30 mL/min) AND/OR *Sequential Compression Device (SCD) 5 or more Highest Order ONE of the following medications: *Heparin 5000 units SQ TID (Preferred with Epidurals) *Enoxaparin/Lovenox 40 mg SQ daily (WT < 150 kg, CrCl > 30 mL/min) *Enoxaparin/Lovenox 30 mg SQ daily (WT < 150 kg, CrCl > 10-29 mL/min) *Enoxaparin/Lovenox 30 mg SQ BID (WT < 150 kg, CrCl > 30 mL/min) AND *Sequential Compression Device (SCD) Assessment and Plan Assessment and Plan Assessment/plan: 1. Lymphedema/?Sepsis Patient meets sepsis criteria with leukocytosis and tachycardia Blood cultures pending Broad-spectrum antibiotics, anticipate de-escalation as process likely not infectious Consult wound care physician Consult vascular surgery Physical therapy Case management consulted to assist with scooter and shoes FEN NPO Electrolytes: monitor and replete prn Holding pharmacologic anticoagulation as patient may undergo procedural intervention Physician Certification 2 Midnight Certification Type: Admission for Inpatient Services Order for Inpatient Services The services are ordered in accordance with Medicare regulations or non- Medicare payer requirements, as applicable. In the case of services not specified as inpatient-only, they are appropriately provided as inpatient services in accordance with the 2-midnight benchmark. Estimated LOS (days): 2 2 days is the estimated time the patient will need to remain in the hospital, assuming treatment plan goals are met and no additional complications. Post-Hospital Plan: Not yet determined Sierra Garrett MD October 11, 2017 20:00
[2017-10-11 20:08] LABS: BACTERIA, URINE MOD /hpf; BILIRUBIN, URINE NEG (NEG); BLOOD, URINE TRACE (NEG); GLUCOSE,URINE NEG (NEG); KETONE, URINE NEG (NEG); MUCUS URINE FEW /lpf (OCC); NITRITE,URINE POS (NEG); PH, URINE 6.5 (5.0-8.5); SQUAMOUS EPITHELIAL CELL URINE 1 /hpf (0-5); URINE COLOR LIGHT-YELLOW (YELLW/STRAW); URINE LEUKOCYTE ESTERASE TRACE (NEG)
[2017-10-11 21:00] VITALS: BP 129/82; PULSE 94; RESP 16; O2SAT 100
[2017-10-11] MEDS: SODIUM CHLORIDE 0.9% FLUSH 10 ML FLUSH IV FLUSH SCH (21:00)
[2017-10-11] MEDS: DOCUSATE SODIUM 50 MG/SENNA 8.6 MG TAB PO SCH (21:00)
[2017-10-11 21:55] VITALS: BP 126/58; PULSE 95; RESP 17; TEMP 98.9; O2SAT 97
[2017-10-12] VITALS: BP 120/60; PULSE 87; RESP 17; TEMP 98.2; O2SAT 98
[2017-10-12] MEDS: PIPERACIL-TAZO 3.375 GM PREMIX 50 ML IV SCH ×4 (03:25→20:00)
[2017-10-12] MEDS ORDERED: VANCOMYCIN INJ 1,000 MG in SODIUM CHLOR 0.9% 250 ML INJ 250 ML IV SCH (06:45)
[2017-10-12 08:00] VITALS: BP 98/57; PULSE 76; RESP 17; TEMP 98.1; O2SAT 96
[2017-10-12 08:55] LABS: AUTOMATED NEUTROPHIL # 6.7 TH/MM3 (1.8-7.7); BASOPHIL % 0.4 % (0.0-2.0); EOSINOPHIL # 0.3 TH/MM3 (0-0.4); EOSINOPHIL % 3.4 % (0.0-4.0); HEMATOCRIT 28.2 % (39.0-51.0); HEMOGLOBIN 9.5 GM/DL (13.0-17.0); LYMPH % 9.9 % (9.0-44.0); LYMPHOCYTE # 0.9 TH/MM3 (1.0-4.8); MEAN CELL VOLUME 82.7 FL (80.0-100.0); MEAN CORPUSCULAR HEMOGLOBIN 27.7 PG (27.0-34.0); MEAN CORPUSCULAR HGB CONC 33.6 % (32.0-36.0); MEAN PLATELET VOLUME 6.3 FL (7.0-11.0); MONO % 9.5 % (0.0-8.0); MONOCYTE # 0.8 TH/MM3 (0-0.9); NEUT % 76.8 % (16.0-70.0); PLATELET COUNT 283 TH/MM3 (150-450); RED BLOOD COUNT 3.42 MIL/MM3 (4.50-5.90); RED CELL DISTRIBUTION WIDTH 14.2 % (11.6-17.2); WHITE BLOOD COUNT 8.8 TH/MM3 (4.0-11.0)
--- NOTE | 2017-10-12 08:55 | EKG ---
Date Performed: 10/11/2017 Time Performed: 18:20:51 PTAGE: 67 years EKG: Sinus rhythm NORMAL ECG PREVIOUS TRACING : 06/08/2009 14.26 Since the previous tracing, no significant change noted DOCTOR: Rivera Navarro Interpretating Date/Time 10/12/2017 08:50:44
[2017-10-12] MEDS: DOCUSATE SODIUM 50 MG/SENNA 8.6 MG TAB PO SCH ×2 (09:00→21:00)
[2017-10-12] MEDS: SODIUM CHLORIDE 0.9% FLUSH 10 ML FLUSH IV FLUSH SCH ×2 (09:06→21:00)
[2017-10-12] MEDS: VANCOMYCIN INJ 1,500 MG in SODIUM CHLORID 0.9% 500 ML INJ 500 ML IV SCH ×2 (09:06→20:00)
[2017-10-12 09:17] LABS: BICARBONATE 28.6 MEQ/L (21.0-32.0); CALCIUM 8.4 MG/DL (8.5-10.1); CREATININE 0.65 MG/DL (0.60-1.30)
--- NOTE | 2017-10-12 11:02 | PD.VS.CON ---
History of Present Illness Chief Complaint: Lymphedema Consult Requested by: Dr. Garrett History of Present Illness Mr. Morales is a 67/M with chronic malodorous LE wounds and bilateral lower extremity lymphedema Pt reported he has had lymphedema for "many many many " years Pt denied fever or chills Pt reported he has not used compression stocking therapy (Marisol Amezquita) Past/Family/Social History Past Medical History Anxiety Past Surgical History Tonsillectomy Social History Homeless Retired- deckhand maintenance Does not have children Denied ETOH Denied Tobacco abuse Denied Illicit drug usage Family History Pt denied (Marisol Amezquita) Home Medications Active Scripts Hydrocodone-Acetaminophen (Hydrocodone-Acetaminophen) 7.5 Mg-325 Mg Tab, 1 TAB PO Q4H Y for PAIN, #60 TAB 0 Refills Prov:Gagandeep Orlando 06/12/17 Discontinued Scripts Clindamycin (Cleocin) 150 Mg Cap, 300 MG PO Q6HR for infection, #28 CAP Prov:Kat Jerry MD 06/12/17 Ciprofloxacin (Ciprofloxacin) 750 Mg Tab, 750 MG PO Q12HR for infection, #14 TAB Prov:Kat Jerry MD 06/12/17 Coded Allergies: lidocaine (Verified Allergy, Mild, 10/11/17) DENTIST TOLD HIM BUT HE DOESNT BELIEVE IT Review of Systems Constitutional: DENIES: Fever, Chills Cardiovascular: COMPLAINS OF: Lower Extremity Edema (B LE Lymphedema ), DENIES : Claudication Integumentary: COMPLAINS OF: Abnormal pigmentation (Silvery scaly overlaying skin w/ fissuring from Bilateral below the knees to feet ) (Marisol Amezquita ) Physical Exam Vitals/I&O Date Time Temp Pulse Resp B/P (MAP) Pulse Ox O2 Delivery O2 Flow Rate FiO2 10/12/17 08:00 98.1 76 17 98/57 (71) 96 10/12/17 00:00 98.2 87 17 120/60 (80) 98 10/11/17 21:55 98.9 95 17 126/58 (80) 97 10/11/17 21:34 10/11/17 21:00 94 16 129/82 (98) 100 Room Air 10/11/17 19:30 90 16 140/70 (93) 99 Room Air 10/11/17 17:54 16 10/11/17 17:54 99.4 102 16 123/60 (81) 99 Room Air 10/11/17 17:20 99.4 103 16 123/60 (81) 99 10/12/17 10/12/17 10/12/17 07:00 15:00 23:00 Intake Total 567.5 ml Output Total 1300 ml Balance -732.5 ml Neuro: GCS 15 A&OX3 HEENT: MARIBETH Neck: NO JVD distention Heart: RRR w/o M/R/G +S1,S2 Lungs: CTA Abdomen: S/NT Vascular: Palpable R/L Femoral pulses Palpable R/L Radial pulses Strong Triphasic R/L DP heard via Doppler Pt with Bilateral LE lymphedema Pt w/ Silvery scaly overlaying skin w/ fissuring from Bilateral below the knees to feet (Marisol Amezquita) Laboratory Tests Test 10/11/17 17:30 10/11/17 19:30 10/12/17 07:20 White Blood Count 14.4 8.8 Red Blood Count 4.01 3.42 Hemoglobin 10.9 9.5 Hematocrit 33.7 28.2 Mean Corpuscular Volume 84.0 82.7 Mean Corpuscular Hemoglobin 27.1 27.7 Mean Corpuscular Hemoglobin Concent 32.3 33.6 Red Cell Distribution Width 14.5 14.2 Platelet Count 284 283 Mean Platelet Volume 6.3 6.3 Neutrophils (%) (Auto) 84.5 76.8 Lymphocytes (%) (Auto) 6.4 9.9 Monocytes (%) (Auto) 6.8 9.5 Eosinophils (%) (Auto) 1.9 3.4 Basophils (%) (Auto) 0.4 0.4 Neutrophils # (Auto) 12.1 6.7 Lymphocytes # (Auto) 0.9 0.9 Monocytes # (Auto) 1.0 0.8 Eosinophils # (Auto) 0.3 0.3 Basophils # (Auto) 0.1 0.0 CBC Comment DIFF FINAL DIFF FINAL Differential Comment Prothrombin Time 11.9 Prothromb Time International Ratio 1.2 Activated Partial Thromboplast Time 25.5 Blood Urea Nitrogen 12 7 Creatinine 0.87 0.65 Random Glucose 131 69 Total Protein 8.0 Albumin 2.4 Calcium Level 8.8 8.4 Magnesium Level 2.1 Alkaline Phosphatase 64 Aspartate Amino Transf (AST/SGOT) 10 Alanine Aminotransferase (ALT/SGPT) 12 Total Bilirubin 0.6 Sodium Level 135 139 Potassium Level 4.2 3.9 Chloride Level 101 104 Carbon Dioxide Level 28.4 28.6 Anion Gap 6 6 Estimat Glomerular Filtration Rate 106 149 Lactic Acid Level 1.9 Lipase 89 Urine Color LIGHT-YELLOW Urine Turbidity CLEAR Urine pH 6.5 Urine Specific [place] 1.008 Urine Protein NEG Urine Glucose (UA) NEG Urine Ketones NEG Urine Occult Blood TRACE Urine Nitrite POS Urine Bilirubin NEG Urine Urobilinogen LESS THAN 2.0 Urine Leukocyte Esterase TRACE Urine RBC 1 Urine WBC 1 Urine Squamous Epithelial Cells 1 Urine Bacteria MOD Urine Mucus FEW Microscopic Urinalysis Comment CATH-CULTURE IND Date/Time Source Procedure Growth Status 10/12/17 07:20 Blood Peripheral Aerobic Blood Culture Pending Received 10/12/17 07:20 Blood Peripheral Anaerobic Blood Culture Pending Received 10/11/17 19:30 Urine Clean Catch Urine Culture Pending Received Last 48 hours Impressions Chest X-Ray 10/11/17 [id number] Signed Impressions: Service Date/Time: Wednesday, October 11, 2017 17:31 - CONCLUSION: The lungs are clear. Giovanni Macias MD (Marisol Amezquita) Assessment and Plan Assessment: (1) Lymphedema (2) Lower extremity cellulitis Plan 67/M with lymphedema Plan Discussed Lymphedema with patient Recommend aggressive bilateral lower extremity compression from toes to groin Continue wound care per Dr. Daiana Amezquita [facility] [phone] (Marisol Amezquita) Plan Pt seen and examined. Agree with above. He has longstanding secondary lymphedema and likely super-imposed infection. Still ambulatory. Needs aggressive wound care, compression, and only surgical option really is AKA which he doesn't need presently. Michael Tapia MD [facility] business management associate [facility] - [facility] V[facility] Surgery at [facility] [phone] (Michael Tapia MD) Problem Qualifiers (1) Lower extremity cellulitis: Qualified Codes: L03.119 - Cellulitis of unspecified part of limb Marisol Amezquita October 12, 2017 11:02 Michael Tapia MD October 12, 2017 11:54
[2017-10-12 12:00] VITALS: BP 114/58; PULSE 81; RESP 17; TEMP 97.7; O2SAT 96
[2017-10-12 16:00] VITALS: BP 121/67; PULSE 85; RESP 17; TEMP 97.3; O2SAT 97
--- NOTE | 2017-10-12 19:04 | HHI.PR ---
Subjective Remarks Patient sitting up in chair. Appears comfortable. Says he is having generalized discomfort in his legs. Denies any chest pain or shortness breath. Denies nausea or vomiting. Objective Vital Signs Date Time Temp Pulse Resp B/P (MAP) Pulse Ox O2 Delivery O2 Flow Rate FiO2 10/12/17 16:00 97.3 85 17 121/67 (85) 97 10/12/17 12:00 97.7 81 17 114/58 (76) 96 10/12/17 08:00 98.1 76 17 98/57 (71) 96 10/12/17 00:00 98.2 87 17 120/60 (80) 98 10/11/17 21:55 98.9 95 17 126/58 (80) 97 10/11/17 21:34 10/11/17 21:00 94 16 129/82 (98) 100 Room Air 10/11/17 19:30 90 16 140/70 (93) 99 Room Air I/O 10/11/17 10/11/17 10/11/17 10/12/17 10/12/17 10/12/17 07:00 15:00 23:00 07:00 15:00 23:00 Intake Total 100 ml 567.5 ml 804 ml Output Total 1300 ml 1250 ml Balance 100 ml -732.5 ml -446 ml Intake Oral 804 ml IV Total 100 ml 567.5 ml Output Urine Total 1300 ml 1250 ml # Bowel Movements 1 Result Diagram: 10/12/17 0720 10/12/17 0720 Objective Remarks GENERAL: . Appears comfortable. SKIN: Warm and dry. HEAD: Normocephalic. EYES: No scleral icterus. No injection or drainage. NECK: Supple, trachea midline. No JVD. CARDIOVASCULAR: Regular rate and rhythm without murmurs, gallops, or rubs. RESPIRATORY: Breath sounds equal bilaterally. No accessory muscle use. GASTROINTESTINAL: Abdomen soft, non-tender, nondistended. MUSCULOSKELETAL: No cyanosis. 40 edema bilateral lower extremities, with hyperkeratosis. Weeping right lower extremity. Malodorous, smells like anaerobes. BACK: Nontender without obvious deformity. No CVA tenderness. A/P Assessment and Plan //Sepsis on admission Patient meets sepsis criteria with leukocytosis and tachycardia -Source of infection is bilateral lower extremity venous stasis cellulitis. Blood cultures pending Broad-spectrum antibiotics, anticipate de-escalation as process likely not infectious Consult wound care physician Consult vascular surgery Physical therapy Case management consulted to assist with scooter and shoes = 10/12/17. Continue antibiotics. White count improving. Appreciate vascular surgery recommendations. Follow-up wound care recommendations. Blood cultures pending. Appreciate assistance. //Chronic edema. We'll check BNP. P//rophylaxis. Start heparin. Discharge Planning pending further improvement, clearance from wound care. Forrest Heard MD October 12, 2017 19:04
[2017-10-12 20:00] VITALS: BP 121/63; PULSE 105; RESP 16; TEMP 97.6; O2SAT 91
[2017-10-12] MEDS: HEPARIN SODIUM - SQ 10,000 UNITS/ML VIAL SQ SCH (22:53)
[2017-10-13] VITALS: BP 134/67; PULSE 69; RESP 16; TEMP 98.9; O2SAT 93
[2017-10-13] MEDS: PIPERACIL-TAZO 3.375 GM PREMIX 50 ML IV SCH (02:00)
[2017-10-13 05:49] LABS: AUTOMATED NEUTROPHIL # 5.9 TH/MM3 (1.8-7.7); BASOPHIL % 0.4 % (0.0-2.0); EOSINOPHIL # 0.5 TH/MM3 (0-0.4); EOSINOPHIL % 6.1 % (0.0-4.0); HEMATOCRIT 28.2 % (39.0-51.0); HEMOGLOBIN 9.2 GM/DL (13.0-17.0); LYMPH % 10.1 % (9.0-44.0); LYMPHOCYTE # 0.8 TH/MM3 (1.0-4.8); MEAN CELL VOLUME 83.5 FL (80.0-100.0); MEAN CORPUSCULAR HEMOGLOBIN 27.3 PG (27.0-34.0); MEAN CORPUSCULAR HGB CONC 32.7 % (32.0-36.0); MEAN PLATELET VOLUME 6.1 FL (7.0-11.0); MONO % 8.8 % (0.0-8.0); MONOCYTE # 0.7 TH/MM3 (0-0.9); NEUT % 74.6 % (16.0-70.0); PLATELET COUNT 272 TH/MM3 (150-450); RED BLOOD COUNT 3.38 MIL/MM3 (4.50-5.90); RED CELL DISTRIBUTION WIDTH 14.4 % (11.6-17.2); WHITE BLOOD COUNT 7.9 TH/MM3 (4.0-11.0)
[2017-10-13 06:21] LABS: ALBUMIN 1.7 GM/DL (3.4-5.0); BICARBONATE 25.7 MEQ/L (21.0-32.0); CREATININE 0.9 MG/DL (0.60-1.30); PHOSPHORUS 3.2 MG/DL (2.5-4.9)
[2017-10-13] MEDS ORDERED: PHARMACY ORDERED LAB ONE (07:45)
[2017-10-13 08:00] VITALS: BP 129/64; PULSE 78; RESP 17; TEMP 97.7; O2SAT 98
[2017-10-13] MEDS: HEPARIN SODIUM - SQ 10,000 UNITS/ML VIAL SQ SCH ×2 (09:00→19:48)
[2017-10-13] MEDS: DOCUSATE SODIUM 50 MG/SENNA 8.6 MG TAB PO SCH ×2 (09:00→19:45)
[2017-10-13] MEDS: SODIUM CHLORIDE 0.9% FLUSH 10 ML FLUSH IV FLUSH SCH ×2 (11:35→19:48)
[2017-10-13] MEDS: VANCOMYCIN INJ 1,500 MG in SODIUM CHLORID 0.9% 500 ML INJ 500 ML IV SCH (11:35)
[2017-10-13 12:00] VITALS: BP 109/61; PULSE 85; RESP 18; TEMP 97.5; O2SAT 97
--- NOTE | 2017-10-13 13:48 | PD.WOU.CON ---
Patient Intake Chief Complaint Severe Lymphedema with associated ulcers Consult Requested by Dr. Meyers Reason for Consult Patient with severe Lymphedema with associated ulcerations Primary Care Physician Unknown Coded Allergies: lidocaine (Verified Allergy, Mild, 10/11/17) DENTIST TOLD HIM BUT HE DOESNT BELIEVE IT Vital Signs Date Time Temp Pulse Resp B/P (MAP) Pulse Ox O2 Delivery O2 Flow Rate FiO2 10/13/17 12:00 97.5 85 18 109/61 (77) 97 10/13/17 08:00 97.7 78 17 129/64 (85) 98 10/13/17 00:00 98.9 69 16 134/67 (89) 93 10/12/17 20:00 97.6 105 16 121/63 (82) 91 10/12/17 16:00 97.3 85 17 121/67 (85) 97 Past, Family & Social History Past Medical History HEENT: DENIES HX OF: Cataracts, Glaucoma, Recurrent ear infections, Recurrent sinusitis, Other HEENT history Endocrine: DENIES HX OF: Diabetes mellitus, Graves disease, Hyperthyroidism, Hypothyroidism, Other endocrine history Respiratory: DENIES HX OF: Allergies/hay fever, Asthma, COPD, CPAP use, Sleep apnea, Other respiratory history Cardiovascular: DENIES HX OF: Abdominal aortic aneurysm, Angina, Atrial fibrillation, Cardiac arrhythmias, Coronary artery disease, Deep venous thrombosis, Heart failure, Heart valve disease, Hyperlipidemia, Hypertension, Myocardial infarction, Peripheral vascular dz, Other CV history Gastrointestinal: DENIES HX OF: Colitis, GERD, Irritable bowel syndrome, Liver disease, Pancreatitis, Peptic ulcer disease, Other GI history Genitourinary: DENIES HX OF: Chlamydia, Gonorrhea, Hemodialysis, Herpes genitalis, Human papillomavirus, Kidney disease, Kidney failure, Kidney stones, Past UTI, Peritoneal dialysis, Urinary incontinence, Other history Genitourinary - Male: DENIES HX OF: Benign prost. hyperplasia, Erectile dysfunction, Prostatitis, Testicular problems, Undescended testicle Musculoskeletal: DENIES HX OF: Fibromyalgia, Fractures, Gout, Osteoarthritis, Osteoporosis, Rheumatoid arthritis, Other musculoskeletal hx Cancer/Hematology: DENIES HX OF: Anemia, Bladder Cancer, Blood cancer, Brain cancer, Breast cancer, Colorectal cancer, Endocrine cancer, Eye cancer, GI cancer, cancer, Kidney cancer, Leukemia, Liver cancer, Lung cancer, Lymphoma , Musculoskeletal cancer, Neurologic cancer, Oral cancer, Skin cancer, Stomach cancer, Thyroid cancer, Other cancer/hematology Cancer - Male: DENIES HX OF: Prostate cancer, Testicular cancer Infectious Disease: DENIES HX OF: AIDS, Chickenpox, Hepatitis, HIV, Measles, MRSA, Mumps, Polio, Positive PPD, Rheumatic fever, Rubella, Syphilis, Tuberculosis, Vanc-resistant enterococc, Other inf disease history Integumentary: REPORTS HX OF: Other integumentary hx (lymphodema), DENIES HX OF : Acne, Eczema, Psoriasis Neurologic: DENIES HX OF: ADHD, Autism, Dementia, Developmental delay, Headaches, Multiple sclerosis, Parkinson disease, Peripheral neuropathy, Restless leg syndrome, Seizures, Stroke, Transient ischemic attack, Other neurologic history Psychiatric: DENIES HX OF: Anorexia nervosa, Anxiety, Bipolar disorder, Bulimia , Depression, Schizophrenia, Other psychiatric history Genetic/Metabolic: DENIES HX OF: Cystic fibrosis, Down syndrome, Other genetic history, Other metabolic history Events: DENIES HX OF: Anaphylaxis, Gunshot wound, Motor vehicle accident, Other events Disabilities: DENIES HX OF: Hearing deficit, Vision deficit, Hemiparesis, Paraplegia, Quadriplegia, Other disabilities Past Surgical History HEENT: REPORTS HX OF: Dental surgery, Tonsillectomy, DENIES HX OF: Cataract extraction, Laryngectomy, Other head surgery, Other eye surgery, Other ear surgery, Other nasal surgery, Other throat surgery Endocrine: DENIES HX OF: Parathyroidectomy, Thyroid surgery, Other endocrine surgery Respiratory: DENIES HX OF: Bronchoscopy, Lobectomy, Other chest surgery Cardiovascular: DENIES HX OF: Angiogram, Angioplasty, CABG surgery, Carotid endarterectomy, Coronary stent, Heart transplant, Pacemaker, Valve replacement, Other cardiac surgery Gastrointestinal: DENIES HX OF: Appendectomy, Cholecystectomy, Colectomy, subtotal, Colectomy, total, Gastric bypass, Hernia repair, Splenectomy, Other GI surgery Genitourinary: DENIES HX OF: Bladder surgery, Kidney stone extraction, Nephrectomy, Other surgery Genitourinary - Male: DENIES HX OF: Prostatectomy, TURP, Vasectomy Musculoskeletal: DENIES HX OF: Joint replacement, Other musculoskeletal srg Integumentary: DENIES HX OF: Skin cancer removal, Other integumentary surg Neurologic: DENIES HX OF: Craniotomy, Spinal surgery, Other neurologic surgery Breast: DENIES HX OF: Breast biopsy, Lumpectomy, Mastectomy, bilateral, Mastectomy, left, Mastectomy, right, Other breast surgery Substance Use Substance Use: Denies use Wound Assessment Wound Information - Wound One Wound Location: left posterior wound full-thickness. Lab and Radiology Results Radiology Last Impressions Chest X-Ray 10/11/17 [id number] Signed Impressions: Service Date/Time: Wednesday, October 11, 2017 17:31 - CONCLUSION: The lungs are clear. Giovanni Macias MD Assessment/Plan Problem List: (1) Lymphedema of both lower extremities (2) Chronic acquired lymphedema (3) Ulcers of both lower extremities Valery Ahmadi MD October 13, 2017 13:48
[2017-10-13 16:00] VITALS: BP 112/56; PULSE 84; RESP 18; TEMP 97.4; O2SAT 96
--- NOTE | 2017-10-13 16:33 | PD.WCN.NOT ---
Wound Consult Description: Patient seen on with Doctor Ahmadi Communicated with: Doctor Daiana, and MITESH Torres Recommendation: Please leave Nova boots in place and follow written orders by Doctor Ahmadi Additional Information: Patient seen on for wound care physician consult. Patient seen with Doctor Ahmadi, Mary Kate WONG, teletypewriter installer and MITESH Torres around 0830. Patient noted with lymphedema in BLE with Elephantiasis nostras verrucosa. Skin has cobble stone appearance with deep intertriginous areas, from edema. Toes are not visible edematous skin has folded over covering toes. Weeping open open wounds are noted to bilateral, lateral and posterior legs. Wounds to bilateral legs Also superficial wound is noted to R plantar foot. Shallow full thickness wounds with poorly defined wound margins are noted to BLE each measuring ~22cm x ~15cmx ~0.1cm . R plantar foot wound measures ~3cm x ~5cm x ~0.1cm. BLE are Weeping moderate serous drainage with mild odor.Applied shaving cream to BLE and covered with warm moist towels and left in place for ~10minutes, before removing with warm water and wash cloths. Nova boots were applied for compression therapy with Optilock dressing placed over open wounds. Doctor Daiana to write wound care orders. Maira Neal [facility] October 13, 2017 16:33
[2017-10-13] MEDS: AMOXICILLIN/CLAVULANATE K 875 MG TAB PO SCH (19:46)
[2017-10-13] MEDS: DOXYCYCLINE HYCLATE 100 MG CAP PO SCH (19:46)
[2017-10-13 20:00] VITALS: BP 119/60; PULSE 84; RESP 18; TEMP 99.4; O2SAT 97
[2017-10-14] VITALS: BP 107/56; PULSE 81; RESP 18; TEMP 98.7; O2SAT 94
[2017-10-14] MEDS ORDERED: VANCOMYCIN INJ 1,750 MG in SODIUM CHLORID 0.9% 500 ML INJ 500 ML IV SCH ×2
[2017-10-14 08:00] VITALS: BP 113/73; PULSE 98; RESP 17; TEMP 98; O2SAT 94
[2017-10-14] MEDS: DOCUSATE SODIUM 50 MG/SENNA 8.6 MG TAB PO SCH (09:00)
[2017-10-14] MEDS: DOXYCYCLINE HYCLATE 100 MG CAP PO SCH (09:36)
[2017-10-14] MEDS: SODIUM CHLORIDE 0.9% FLUSH 10 ML FLUSH IV FLUSH SCH (09:36)
[2017-10-14] MEDS: AMOXICILLIN/CLAVULANATE K 875 MG TAB PO SCH (09:36)
[2017-10-14] MEDS: HEPARIN SODIUM - SQ 10,000 UNITS/ML VIAL SQ SCH (09:37)
[2017-10-14] MEDS ORDERED: [UNRECOGNIZED DRUG - OTHER] (10:31)
[2017-10-14] MEDS ORDERED: POST OP SHOE (10:31)
[2017-10-14] MEDS ORDERED: WALKER WHEELS/F1 MIS (10:31)
[2017-10-14 12:00] VITALS: BP 113/58; PULSE 82; RESP 17; TEMP 98; O2SAT 97
[2017-10-14 16:00] VITALS: BP 135/62; PULSE 80; RESP 17; TEMP 97.4; O2SAT 96
[2017-10-14] MEDS ORDERED: NITR100C4 PO (16:32)
[2017-10-14] MEDS ORDERED: AMOX875T2 PO (16:32)
[2017-10-14] MEDS ORDERED: DOXY100C PO (16:32)
[2017-10-15] MEDS ORDERED: PHARMACY ORDERED LAB ONE (11:45)
--- NOTE | 2017-10-17 09:58 | HHI.PR ---
Subjective Remarks Date of service 10/13/17 Patient seen the morning. Says he's feeling right. Denies any chest pain or shortness of breath. Denies any nausea or vomiting. He denies any dysuria. Objective Result Diagram: 10/13/17 0527 10/13/17 0527 Objective Remarks GENERAL: . Appears comfortable. SKIN: Warm and dry. HEAD: Normocephalic. EYES: No scleral icterus. No injection or drainage. NECK: Supple, trachea midline. No JVD. CARDIOVASCULAR: Regular rate and rhythm without murmurs, gallops, or rubs. RESPIRATORY: Breath sounds equal bilaterally. No accessory muscle use. GASTROINTESTINAL: Abdomen soft, non-tender, nondistended. MUSCULOSKELETAL: No cyanosis. 40 edema bilateral lower extremities, with hyperkeratosis. Weeping right lower extremity, improved from yesterday. BACK: Nontender without obvious deformity. No CVA tenderness. A/P Assessment and Plan //Sepsis on admission Patient meets sepsis criteria with leukocytosis and tachycardia -Source of infection is bilateral lower extremity venous stasis cellulitis. Blood cultures pending Broad-spectrum antibiotics, anticipate de-escalation as process likely not infectious Consult wound care physician Consult vascular surgery Physical therapy Case management consulted to assist with scooter and shoes = 10/12/17. Continue antibiotics. White count improving. Appreciate vascular surgery recommendations. Follow-up wound care recommendations. Blood cultures pending. Appreciate assistance. = 10/13. Continue broad-spectrum antibiotics. Appreciate wound care assistance. //ESBL Escherichia coli UTI. Patient is asymptomatic, however given sepsis on admission, Will treat with 3 days of Macrobid. //Chronic edema. We'll check BNP. P//rophylaxis. Start heparin. Discharge Planning pending further improvement, clearance from wound care. Forrest Heard MD October 17, 2017 09:58
--- NOTE | 2017-10-17 10:04 | HHI.DS ---
Discharge Summary Admission Date October 11, 2017 at 19:46 Discharge Date: October 15, 2017 Admitting Diagnosis lymphedema, leukocytosis (1) Elephantiasis ICD Code: I89.0 - Elephantiasis Status: Chronic (2) Chronic acquired lymphedema ICD Code: I89.0 - Lymphedema, not elsewhere classified (3) Lower extremity cellulitis ICD Code: L03.119 - Cellulitis of unspecified part of limb Procedures Unna boot applied by wound care. Brief History - From Admission 67 year old male with a past medical history significant for bilateral lymphedema presents to the emergency department at the request of his wound care physician. Patient has severe bilateral lower extremity lymphedema with scaling skin and areas of exposed dermal layer. Posterior lower extremities draining foul-smelling serosanguineous material. The patient denies any fever/ chills. States he is having difficulty standing for long periods of time but is able to weight-bear. No chest pain or shortness of breath. No nausea/ vomiting/diarrhea/abdominal pain. No fatigue/weakness. No lateralizing signs/ symptoms. CBC/BMP: 10/13/17 0527 10/13/17 0527 Imaging Last Impressions Chest X-Ray 10/11/17 1719 Signed Impressions: Service Date/Time: Wednesday, October 11, 2017 17:31 - CONCLUSION: The lungs are clear. Giovanni Macias MD PE at Discharge GENERAL: patient sitting up in chair. Appears comfortable. SKIN: Warm and dry. HEAD: Normocephalic. EYES: No scleral icterus. No injection or drainage. NECK: Supple, trachea midline. No JVD CARDIOVASCULAR: Regular rate and rhythm without murmurs, gallops, or rubs. RESPIRATORY: Breath sounds equal bilaterally. No accessory muscle use. GASTROINTESTINAL: Abdomen soft, non-tender, nondistended. MUSCULOSKELETAL: No cyanosis. Bilateral legs in Unna boot. BACK: Nontender without obvious deformity. No CVA tenderness. Pt update on day of discharge Patient seen 10/14/17. Patient says he is feeling well. Denies chest pain or shortness breath. Has had Unna boot placed by wound care. Hospital Course Patient presented with leukocytosis of 14, tachycardiac, bilateral lower extremity venous stasis cellulitis, right worse than left. Wound care consulted. Recommends Unna boot, which was placed. Sepsis resolved with broad- spectrum IV antibiotics. Patient will be sent to rehabilitation on doxycycline and Augmentin to complete treatment course. Patient was also found to have ESBL Escherichia coli UTI which he will complete a course of Bactrim. Follow- up with wound care as outpatient. for problem-based summary from most recent progress note, please see below. //Sepsis on admission Patient meets sepsis criteria with leukocytosis and tachycardia -Source of infection is bilateral lower extremity venous stasis cellulitis. Blood cultures pending Broad-spectrum antibiotics, anticipate de-escalation as process likely not infectious Consult wound care physician Consult vascular surgery Physical therapy Case management consulted to assist with scooter and shoes = 10/12/17. Continue antibiotics. White count improving. Appreciate vascular surgery recommendations. Follow-up wound care recommendations. Blood cultures pending. Appreciate assistance. = 10/13. Continue broad-spectrum antibiotics. Appreciate wound care assistance. = 10/14. Discharge home on doxycycline and Augmentin //ESBL Escherichia coli UTI. Patient is asymptomatic, however given sepsis on admission, Will treat with 3 days of Macrobid. //Chronic edema. We'll check BNP. P//rophylaxis. Start heparin. Discharge Planning pending further improvement, clearance from wound care. Pt Condition on Discharge: Good Discharge Disposition: Discharge to SNF Discharge Time: > 30 minutes Discharge Instructions DIET: Follow Instructions for: Heart Healthy Diet Activities you can perform: Regular-No Restrictions Follow up Referrals: Wound Care Clinic - 3-5 Days New Medications: Elastic Bandages & Supports (Post-Op Shoe/Soft Top/Men) 1 Mis Mis EA .XX DIRECTED, #1 0 Refills Nitrofurantoin Monohydrate Macrocrystals (Nitrofurantoin Monohydrate Macrocrystals) 100 Mg Cap 100 MG PO BID for Infection for 3 Days, #6 CAP 0 Refills Walker with Front Wheels (Walker with Front Wheels) 1 Mis Mis EA .XX DIRECTED, #1 0 Refills Amoxicillin-Clavulanate (Amoxicillin-Clavulanate) 875-125 mg Tab 875 MG PO Q12HR for Infection for 10 Days, TAB not for use in CrCl <30 mL/minute Doxycycline Hyclate (Doxycycline Hyclate) 100 Mg Cap 100 MG PO BID for Infection for 10 Days, #20 CAP Discontinued Medications: Hydrocodone-Acetaminophen (Hydrocodone-Acetaminophen) 7.5 Mg-325 Mg Tab 1 TAB PO Q4H PRN for PAIN, #60 TAB 0 Refills Forrest Heard MD October 17, 2017 10:04
== END 2017-10-14 18:04 | DRG 872 ==
LOC: NEPC 17:06 → NEDA 19:10 → OBSVTOIN 19:46 → N07B 21:37
PROVIDERS: ADMIT Family Medicine; ATTEND Family Medicine
DX: A41.9 Sepsis, unspecified organism (principal); L97.919 Non-pressure chronic ulcer of unspecified part of right lower leg with unspecified severity; L97.929 Non-pressure chronic ulcer of unspecified part of left lower leg with unspecified severity; L03.115 Cellulitis of right lower limb; L03.116 Cellulitis of left lower limb; N39.0 Urinary tract infection, site not specified; Z16.12 Extended spectrum beta lactamase (ESBL) resistance; B96.20 Unspecified Escherichia coli [E. coli] as the cause of diseases classified elsewhere; I89.0 Lymphedema, not elsewhere classified; Z59.0 Homelessness
CPT/HCPCS: 71045; 80048; 80053; 80069; 80202; 81001; 83605; 83690; 83735; 83880; 85025; 85610; 85730; 87040; 87077; 87086; 87186; 93005; J1644; J2543; J3370; J7040